=== PATIENT | female | born 1955 | race Caucasian/White ===

== ENCOUNTER 2022-11-01 21:29 | Emergency (ER) | payer MEDICARE, BC, SELFPAY ==
[2022-11-01 21:32] VITALS: BP 156/84; PULSE 89; RESP 16; TEMP 37.3; O2SAT 98; BMI 25.1
--- NOTE | 2022-11-01 22:00 | ED_ITS ---
HPI - General Adult General Date Seen: 11/01/22 Chief complaint: Extremity Pain/Injury, Upper Stated complaint: Cast on L arm causing pain Time Seen by Provider: 11/01/22 21:31 Source: patient Mode of arrival: ambulatory Limitations: no limitations History of Present Illness HPI narrative: Patient is a 67-year-old woman who had surgery on her left thumb at [facility] couple days ago. Says she has been having trouble with pain control since then, she called them yesterday to ask if she could get oxycodone instead of Tylenol No. 3 but they declined. Tonight, she says that the cast just feels tight, her fingers have been swollen and she feels that the cast is too tight so now they are getting tingly. She has not had any redness or fevers. Pain waxes and wanes, currently not that bad. Related Data Home Medications Medication Instructions Recorded Confirmed atenolol 50 mg tablet 50 mg PO QDAY 08/15/22 11/01/22 bupropion HCl 150 mg tablet,12 hr 150 mg PO Q12H 08/15/22 11/01/22 sustained-release (Wellbutrin SR) citalopram 20 mg tablet 20 mg PO QDAY 08/15/22 11/01/22 lorazepam 1 mg tablet 1 mg PO QDAY PRN 08/15/22 11/01/22 omeprazole 20 mg tablet,delayed 20 mg PO QDAY 08/15/22 11/01/22 release acetaminophen-codeine PO 11/01/22 gabapentin 300 mg capsule mg PO 11/01/22 hydroxyzine pamoate .ROUTE 11/01/22 ondansetron 4 mg disintegrating PO 11/01/22 tablet Previous Rx's Medication Instructions Recorded halobetasol propionate 0.05 % 1 applic topical QDAY #50 grams 09/17/22 topical ointment clobetasol 0.05 % topical ointment 1 applic topical .COMPLEX #60 grams 10/30/22 Allergies Allergy/AdvReac Type Severity Reaction Status Date / Time No Known Drug Allergies Allergy Verified 11/01/22 21:38 [facility] Medical History (Updated 11/01/22 @ 21:55 by Bela Macedo MD) Anxiety ?F41.9 - Anxiety disorder, unspecified (ICD-10) Chronic insomnia ?F51.04 - Psychophysiologic insomnia (ICD-10) Depression ?F32.A - Depression, unspecified (ICD-10) Essential hypertension ?I10 - Essential (primary) hypertension (ICD-10) History of diverticulitis (2008) ?Z87.19 - Personal history of other diseases of the digestive system (ICD-10) Osteopenia ?M85.80 - Other specified disorders of bone density and structure, unspecified site (ICD-10) Surgical History (Updated 11/01/22 @ 21:41 by Raheem Reynolds RN) History of appendectomy (1967) ?Z90.49 - Acquired absence of other specified parts of digestive tract (ICD- 10) History of arthroscopic knee surgery (2003) ?Z98.890 - Other specified postprocedural states (ICD-10) History of bladder repair surgery (1998) ?Z98.890 - Other specified postprocedural states (ICD-10) History of colon resection (12/19/09) ?Z90.49 - Acquired absence of other specified parts of digestive tract (ICD- 10) History of D&C (1977) ?Z98.890 - Other specified postprocedural states (ICD-10) History of hand surgery (10/27/14) ?Z98.890 - Other specified postprocedural states (ICD-10) History of open reduction and internal fixation (ORIF) procedure (06/17/20) ?Z98.890 - Other specified postprocedural states (ICD-10) History of total abdominal hysterectomy ?Z90.710 - Acquired absence of both cervix and uterus (ICD-10) History of total abdominal hysterectomy and bilateral salpingo-oophorectomy (1999) ?Z90.710 - Acquired absence of both cervix and uterus (ICD-10) ?Z90.722 - Acquired absence of ovaries, bilateral (ICD-10) ?Z90.79 - Acquired absence of other genital organ(s) (ICD-10) Family History (Updated 08/14/22 @ 12:03 by Tatum Jimenez) Father Coronary artery disease Social History Smoking Status: Never smoker Do you use any of these nicotine containing products: None Second hand tobacco smoke exposure: No How often do you have a drink containing alcohol: 4 or more times a week How many standard drinks containing alcohol do you have on a typical day: 1 or 2 AUDIT-C Alcohol total score: 4 Non-prescribed substance use: denies use service: No Exam Narrative: Exam Narrative: Vital signs reviewed In general, an alert, nontoxic woman. Extremities: The left forearm is in a sugar-tong cast. She does have some edema in her fingers, no significant erythema, no warmth. Capillary refill is brisk throughout the hand. Skin: Warm dry, otherwise well perfused. Const: Vital Signs, click to edit/add: Vital Signs - 24 hr 11/01/22 21:32 Temperature 99.2 F Pulse Rate [Pulse Oximeter] 89 Respiratory Rate 16 Blood Pressure [Ri t Upper Arm] 156/84 H Pulse Oximetry 98 Oxygen Delivery Me thod Room Air Documenting provider has reviewed patient's vital signs: yes Course Course Hospital Course: Overall the hand appears well perfused. I took the Ernst wrap down, I elected to leave the thumb spica portion intact and just cut the upper and lower parts of the cotton wrap to open the splint a bit on the forearm like clamshell. She felt that this relieved the symptoms in her hand. Arm looks normal, there is no erythema. For now I recommended that we just start with this and see how she feels. Discussed that if the pain is progressively getting worse I think someone needs to see it again, ideally at [facility]. Discussed with her that for earl I am trying to leave the thumb spica in place and she just had surgery and she is supposed to have the splint on for a week. For now just opening splint a bit seems to alleviated the symptoms that she was having. I do not have reason to suspect infection specifically at this time. Vital Signs Vital signs: Initial Vital Signs Temperature 99.2 F 11/01/22 21:32 Temperature Source Temporal Artery Scan 11/01/22 21:32 Pulse Rate 89 11/01/22 21:32 Respiratory Rate 16 11/01/22 21:32 Blood Pressure 156/84 H 11/01/22 21:32 Blood Pressure Mean 108 H 11/01/22 21:32 Blood Pressure Position Sitting 11/01/22 21:32 Pulse Oximetry 98 11/01/22 21:32 Oxygen Delivery Method Room Air 11/01/22 21:32 Vital Signs Temperature 99.2 F 11/01/22 21:32 Pulse Rate 89 11/01/22 21:32 Respiratory Rate 16 11/01/22 21:32 Blood Pressure 156/84 H 11/01/22 21:32 Pulse Oximetry 98 11/01/22 21:32 Oxygen Delivery Method Room Air 11/01/22 21:32 Temperature 99.2 F 11/01/22 21:32 Pulse Rate 89 11/01/22 21:32 Respiratory Rate 16 11/01/22 21:32 Blood Pressure 156/84 H 11/01/22 21:32 Pulse Oximetry 98 11/01/22 21:32 Oxygen Delivery Method Room Air 11/01/22 21:32 Discharge Plan Discharge Clinical Impression: Problem with fiberglass cast Patient Disposition: Home, Self-Care Condition: Improved Instructions: Cast Care (ED) Additional Instructions: If you are continuing to have problems or if pain is worsening, call [facility] tomorrow; someone should re-evaluate further. Continue to elevate as able. For severe pain, redness, fever or other acute changes, return to the ER. Prescriptions: No Action bupropion HCl [Wellbutrin SR] 150 mg tablet sustained-release 12 hr 150 mg PO Q12H citalopram 20 mg tablet 20 mg PO QDAY atenolol 50 mg tablet 50 mg PO QDAY omeprazole 20 mg tablet,delayed release (DR/EC) 20 mg PO QDAY lorazepam 1 mg tablet 1 mg PO QDAY PRN gabapentin 300 mg capsule PO ondansetron 4 mg tablet,disintegrating PO hydroxyzine pamoate [Vistaril] .ROUTE acetaminophen-codeine [Tylenol-Codeine #3] PO halobetasol propionate 0.05 % ointment 1 applic topical QDAY Qty: 50 0RF Rx Instructions: Apply to affected area nightly for 4 weeks, then every other night for 4 weeks, then twice weekly for 4 weeks. clobetasol 0.05 % ointment 1 applic topical .COMPLEX Qty: 60 1RF Rx Instructions: 1 applic topically; twice weekly Follow Up/Referrals: Angelo Acevedo MD [Primary Care Provider] - Stand Alone Forms: [facility] Info Instructions
== END 2022-11-01 22:12 | disposition home or self-care (01) ==
LOC: ED 22:06
PROVIDERS: Emergency Provider Emergency Medicine; PCP Family Medicine
DX: Z46.89 Encounter for fitting and adjustment of other specified devices (principal)
CPT/HCPCS: 99282; 99283

== ENCOUNTER 2023-06-15 11:50 | Outpatient (CLI) | payer MEDICARE, BC, SELFPAY | END 2023-06-15 11:51 | disposition home or self-care (01) | LOC: NFLDREF 06-18 03:25 | PROVIDERS: PCP Family Medicine; Referring Provider Family Medicine; Visit Provider Registered Nurse | DX: R30.0 Dysuria (principal); N39.0 Urinary tract infection, site not specified | CPT/HCPCS: 87086; 87186 ==

== ENCOUNTER 2023-11-06 06:55 | Day surgery (SDC) | payer MEDICARE, BC, SELFPAY ==
[2023-11-06] VITALS (19 sets, daily range): BP systolic 123–145; BP diastolic 63–89; PULSE 65–89; RESP 11–20; TEMP 36.3–36.8; O2SAT 93–100; BMI 26.4
--- OUTSIDE RECORDS SUMMARY | 2023-11-06 06:57 | XMS_ITS ---
Author Name Unknown Organization [facility] Address [address] [place] [address] Care Team Providers Care Geodetic Survey Director Name Role Phone Unavailable Unavailable Unavailable Surgery Details Not on file Complications Check Surgery Details section. Procedure Estimated Blood Loss Check Surgery Details section. Procedure Findings Check Surgery Details section. Procedure Specimens Taken Check Surgery Details section.
--- OUTSIDE RECORDS SUMMARY | 2023-11-06 06:57 | XMS_ITS | Referral Summary ---
Author Name Unknown Organization [facility] Address [address] [place] [address] Care Team Providers Care Position Classifier Name Role Phone Elsewhere, Pcp Primary Care Provider Unavailabl e Source Comments Patient records contain information from all sites at [facility]. For routine questions regarding patient records, call [phone] during business hours, M-F 8:00 AM - 5:00 PM Central Time. Record requests for emergency care only can be directed to [phone] at any time.[facility] Allergies No known active allergies Medications Medication Sig Dispensed Refills Start Date End Date Status atenoloL (TENORMIN) 50 mg tablet Take 1 tablet by mouth daily. 02/26/2015 Active buPROPion XL (WELLBUTRIN XL) 150 mg 24 hr tablet Take 2 tablets by mouth daily. 04/28/2015 Active citalopram (CeleXA) 20 mg tablet Take 1 tablet by mouth every morning. 02/26/2015 Active gabapentin (NEURONTIN) 300 mg capsule One oral am and midday, two at bedtime. 11/03/2021 Active LORazepam (ATIVAN) 1 mg tablet Take 1 tablet by mouth at bedtime as needed. 01/07/2022 Active omeprazole (PriLOSEC) [address] capsule Take 20 mg by mouth daily. 08/24/2021 Active vitamin A,C,A-aygxlc-hqvaxptw (OCUVITE W/LUTEIN) 300 mcg (1,000 Unit)-200 mg-60 Unit-2 mg tablet Take 2 tablets by mouth daily. Active UNABLE TO FIND 2 each at bedtime. seratame Active UNABLE TO FIND 8 each daily. Progon-b drops Active Social History Tobacco Use Types Packs/Day Years Used Date Smoking Tobacco: Never Smokeless Tobacco: Never Alcohol Use Standard Drinks/Week Comments Yes 7 (1 standard drink = 0.6 oz pur e alcohol) Humiliation, Afraid, Rape, and Kick questionnair e Answer Date Recorded Within the last year, have y ou been afraid of your partner or ex-partner? No 01/18/2022 Within the last year, have y ou been humiliated or emotionally abused in other ways by your partner or ex-partner? No Within the last year, have y ou been kicked, hit, slapped, or otherwise physically hurt by your partner or ex-partner? No 01/18/2022 Within the last year, have y ou been raped or forced to have any kind of sexual activity by your partner or ex-partner? No 01/18/2022 Social Connection and Isolat ion Panel [NHANES] Answer Date Recorded In a typical week, how many times do you talk on the phone with family, friends, or neighbors? More than three times a week 01/18/2022 How often do you get togethe r with friends or relatives? Patient declined 01/18/2022 How often do you attend [facility] or roman catholic services? Never 01/18/2022 Do you belong to any clubs o r organizations such as sikh groups, unions, fraternal or athletic groups, or school groups? No 01/18/2022 How often do you attend meet ings of the clubs or organizations you belong to? Patient declined 01/18/2022 Are you , , di vorced, , never , or living with a partner? 01/18/2022 AUDIT-C Answer Date Recorded Q1: How often do you have a drink containing alcohol? 4 or more times a week 01/18/2022 Q2: How many drinks containi ng alcohol do you have on a typical day when you are drinking? 1 or 2 2 Q3: How often do you have si x or more drinks on one occasion? Never 01/18/2022 Overall Financial Resource Strain (CARDIA) Answe r Date Recorded How hard is it for you to pa y for the very basics like food, housing, medical care, and heating? Not hard at all 01/18/2022 [facility]at ional Health - Occupational Stress Questionnaire Answer Date Recorded Do you feel stress - tense, restless, nervous, or anxious, or unable to sleep at night because your mind is troubled all the time - these days? Only a little 01/18/2022 Exercise Vital Sign Answer Date Recorde d On average, how many days pe r week do you engage in moderate to strenuous exercise (like a brisk walk)? 3 days 01/18/2022 On average, how many minutes do you engage in exercise at this level? 30 min 01/18/2022 Hunger Vital Sign Answer Date Recorded Within the past 12 months, y ou worried that your food would run out before you got the money to buy more. Never true 01/19/20 Within the past 12 months, t he food you bought just didn't last and you didn't have money to get more. Never true 01/18/2022 PRAPARE - Transportation Answer Date Re corded In the past 12 months, has l ack of transportation kept you from medical appointments or from getting medications? No 01/2022 In the past 12 months, has l ack of transportation kept you from meetings, work, or from getting things needed for daily living? No 01/18/2022 Housing Stability Vital Sign Answer Abran e Recorded In the last 12 months, was t here a time when you were not able to pay the mortgage or rent on time? No 01/18/2022 In the last 12 months, how many places have you lived? 1 01/18/2022 In the last 12 months, was t here a time when you did not have a steady place to sleep or slept in a fci (including now)? No 01/18/2022 Nutrition Answer Date Recorded Nutrition: EVOO Fat Source Yes 01/18 On average, how many serving s of fruits and vegetables do you eat per day (serving size is equal to 1 cup or approximately the size of a tennis ball)? 0-1 01/18/2022 Dental Answer Date Recorded Dental: Regular Dentist Yes 01/19/20 Employment Answer Date Recorded Employment status Retired 01/18/2022 Education Answer Date Recorded What is the highest level of school you have completed or the highest degree you have received? Bachelor's degree (e.g., BA, AB, BS) 01/18/2022 Sex and Gender Information Value Date Recorded Sex Assigned at Female 01/19/2022 12:37 AM CDT Gender Identity Female 01/19/2022 12:37 AM CDT Sexual Orientation Straight 01/19/2022 12 :37 AM CDT Last Filed Vital Signs Vital Sign Reading Time Taken Comments Blood Pressure - - Pulse - - Temperature 36.3 ??C (97.3 ??F) 01/23/2022 1:01 PM CD T Respiratory Rate - - Oxygen Saturation - - Inhaled Oxygen Concentration - - Weight 79.8 kg (175 lb 13.1 oz) 01/23/2022 1:01 PM CDT Height 177 cm (5' 9.69) 01/23/2022 1:01 PM CDT Body Mass Index 25.46 01/23/2022 1:01 PM CDT Plan of Treatment Not on file Medical Devices Implanted Type Area Grain Elevator Superintendent Device Identifier Shelf Expiration Date Model / Serial / Lot Hardware E.G. Pins/Screws/Ro ds-06/17/2020 Implanted:10/2019 (Quantity not on file) Hardware e.g. pins/screws/r ods Wrist Hardware E.G. Pins/Screws/Ro ds-12/07/2020 Implanted:11/13 (Quantity not on file) Hardware e.g. pins/screws/r ods Foot Description:Right foot Procedures Procedure Name Priority Date/Time Associated Diagnosis Comments EXTI BASIC METABOLIC PANEL, S/P Routine 11/03/2021 4:07 PM CDT from Last 3 Months or Most Recently Relevant to Health Maintenance Care Teams Position Classifier Relationship Specialty Start Date End Date Elsewhere, Pcp PCP - General Internal Medicine 01/23/22
--- OUTSIDE RECORDS SUMMARY | 2023-11-06 06:57 | XMS_ITS | Clinical Summary ---
Author Name Unknown Organization [facility] Address [address] [place] [address] Care Team Providers Care Mess Attendant Name Role Phone Elsewhere, Pcp Primary Care Provider Unavailabl e Source Comments Patient records contain information from all sites at [facility]. For routine questions regarding patient records, call [phone] during business hours, M-F 8:00 AM - 5:00 PM Central Time. Record requests for emergency care only can be directed to [phone] at any time.[facility] Allergies No known active allergies Medications Medication [...] mg by mouth daily. 08/24/2021 Active vitamin A,C,V-pbelcz-tkypmvnh (OCUVITE W/LUTEIN) 300 mcg (1,000 Unit)-200 mg-60 Unit-2 mg tablet Take 2 tablets by mouth daily. Active UNABLE TO FIND 2 each at bedtime. seratame Active UNABLE TO FIND 8 each daily. Progon-b drops Active Family History Medical History Relation Name Comments Drug abuse Brother Facundo Bhatt Anxiety disorder Daughter KjirstenAnderedgar Depression Daughter KjirstenAnderson Coronary artery disease Father Song Bhatt Hypertension Father Song Bhatt Parkinson disease Father Song Bhatt Prostate cancer Father Song Bhatt Hyperlipidemia Mother Lizzy Bhatt Osteoporosis Mother Lizzy Bhatt Melanoma Son 1 Jens Chaudhary Drug abuse Son 2 Tin Chaudhary Suicide Attempts Son 2 Tin Chaudhary Anxiety disorder Son 3 Abad Chaudhary Depression Son 3 Abad Chaudhary Drug abuse Son 3 Abad Chaudhary Psychiatric Son 3 Abad Chaudhary Relation Name Status Comments Brother Facundo Bhatt Daughter Michael Father Song Bhatt Mother Lizzy Bhatt Son 1 Jens Chaudhary Son 2 Tin Chaudhary Son 3 Abad Chaudhary Social History Tobacco Use Types Packs/Day Years [...] declined 01/18/2022 How often do you attend chur ch or episcopalian services? Never 01/18/2022 Do you belong to any clubs o r organizations such as druze groups, unions, fraternal or athletic groups, or [...] and heating? Not hard at all 01/18/2022 [facility] - Occupational Stress [...] money to buy more. Never true 01/19/20 22 Within the past 12 months, t he [...] place to sleep or slept in a alf (including now)? No 01/18/2022 Nutrition Answer Date [...] 01/23/2022 1:01 PM CDT Plan of Treatment Health Maintenance Due Date Last Done Comments Bone Density Scan (Osteoporo sis Screen) 1953 CT Colonography 1955 Cologuard 1955 Colonoscopy 1955 Colorectal Cancer Screening 1955 FIT 1953 Hepatitis C Screening 1955 Mammogram 1955 DTaP,Tdap,and Td Vaccines (2 - Td or Tdap) 12/25/2022 12/25/2012, 10/31/1999, 10/31/1999 Depression Screening (Annual PHQ-2) 07/15/2023 Fall Risk Screen (Annual) 07/15/2023 COVID-19 Vaccine (8 2022-2 4 season) 2023 04/10/2023, 11/13/2022, 03/27/2022, Additional history exists Fasting Glucose for Diabetes Screening 11/03/2024 11/03/2021, 06/05/2021, 08/17/2020, Additional history exists Zoster Vaccines Completed 09/01/2018, 02/2018, 12/25/2012 Pneumococcal vaccine (65+ years) Completed 06/23/20, 04/17/2018 Influenza Vaccine Completed 04/10/2023, , 05/02/2021, Additional history exists Medical Devices Implanted Type Area Lung Puller Device Identifier Shelf Expiration Date Model / [...] Recently Relevant to Health Maintenance Care Teams Mess Attendant Relationship Specialty Start Date End Date Elsewhere, Pcp PCP - General Internal Medicine 01/23/22
--- OUTSIDE RECORDS SUMMARY | 2023-11-06 06:58 | XMS_ITS | Clinical Summary ---
Author Name Unknown [facility] Address [address], [place] [address] Care Team Providers Care Line Lead Name Role Phone Angelo Acevedo MD Primary Care Provider [phone] Source Comments You are receiving this document as you are listed as the primary care provider,follow-up provider, or the patient has been referred to you for consultation.This is in compliance with the Medicare and[facility] EHR Incentive Program,which states Providers who transition their patient to another setting of careor provider of care or refers their patient to another provider of care shouldprovide summary care record for each transition of care or referral. [facility] Allergies No known active allergies Medications Medication Sig Dispensed Refills Start Date End Date Status ATENolol (AKA TENORMIN) 50 MG tabletIndications:SAGE URIAS STEFAN M [facility] Apr 28, 2015 2:33 PM Received from: External Pharmacy Indications: PN: STEFAN DUBON [facility] Apr 28, 2015 2:33 PM Received from: External Pharmacy 02/26/2015 Active citalopram (AKA CELEXA) 20 MG tabletIndications:SAGE URIASMYRTLESTEFAN M [facility] Apr 28, 2015 2:33 PM Received from: External Pharmacy Indications: PN: STEFAN DUBON [facility] Apr 28, 2015 2:33 PM Received from: External Pharmacy 02/26/2015 Active buPROPion (WELLBUTRINXL) 150 MG 24 hour release tabletIndications:SAGE URIAS STEFAN Mccall [facility] Apr 28, 2015 2:33 PM Received from: External Pharmacy 1 Tablet (150 mg). Indications: STEFAN DUBON [facility] Apr 28, 2015 2:33 PM Received from: External Pharmacy 04/28/2015 Active omeprazole (PRILOSEC) 20 MG capsule Take 1 Capsule (20 mg) by mouth. 11/13/2022 Active Multiple Vitamins-Minerals (I-MADISON) Take 2 Tablets by mouth daily. Active LORazepam (ATIVAN) 1 MG tablet TAKE 1 TABLET BY MOUTH EVERY DAY AT BEDTIME NEEDED FOR ANXIETY OR NEEDED FOR SLEEP 11/13/2022 Active halobetasol (ULTRAVATE) 0.05 % ointment PLEASE SEE ATTACHED FOR DETAILED DIRECTIONS 09/17/2022 Active clobetasol (TEMOVATE) 0.05 % ointment PLEASE SEE ATTACHED FOR DETAILED DIRECTIONS 09/28/2022 Active alendronate (FOSAMAX) 70 MG tablet Take 1 Tablet (70 mg) by mouth once every week. 11/13/2022 Active Active Problems Problem Noted Date Diagnosed Date Post-operative pain 11/08/2022 Palmar fasciitis 07/27/2021 Primary osteoarthritis of fi rst carpometacarpal joint of left hand 07/27/2021 Encounters Date Type Department Care Team Description 08/29/2023 1:25 PM ASSISTANT PROFESSOR OF ART Ancillary Procedure [facility] [address] [place] [address] Jens Loja MD Postop check 08/29/2023 1:15 PM ASSISTANT PROFESSOR OF ART Office Visit [facility] [address] [place] [id number] Jens Loja MD Postop check (Primary Dx); Weakness from Last 3 Months Social History Tobacco Use Types Packs/Day Years Used Date Smoking Tobacco: Never Alcohol Use Standard Drinks/Week Comments Yes 0 (1 standard drink = 0.6 oz pur e alcohol) one glass wine daily Sex and Gender Information Value Date Recorded Sex Assigned at Not on file Gender Identity Not on file Sexual Orientation Not on file Last Filed Vital Signs Vital Sign Reading Time Taken Comments Blood Pressure 121/68 10/30/2022 2:10 PM CDT Pulse 72 10/30/2022 2:10 PM CDT Temperature 36.9 ??C (98.4 ??F) 10/30/2022 1:29 PM CD T Respiratory Rate 14 10/30/2022 2:10 PM CDT Oxygen Saturation 96% 10/30/2022 2:10 PM CDT Inhaled Oxygen Concentration - - Weight 81.6 kg (180 lb) 10/30/2022 10:26 AM CDT Height 175.3 cm (5' 9) 10/30/2022 10:26 AM CDT Body Mass Index 26.58 10/30/2022 10:26 AM CDT Plan of Treatment Health Maintenance Due Date Last Done Comments Colon Cancer Screening Plan Due 1955 Hep C Screening (Preventive Services) 1955 Medicare Annual Wellness Visit 1955 Cholesterol 1998 Dexa 2018 DTaP/Tdap/Td (2 - Tdap) 12/25/2022 12/26/19 13, 01/12/2006, 10/31/1999 Mammogram 12/13/2023 12/12/2022, 09/18/2021 Zoster/Shingles Completed 09/01/2018, 02/2018, 12/25/2012 Pneumococcal 65+ Yrs Completed 06/23/2019, 04/17/20 18 COVID-19 Vaccine Completed 04/10/2023, 08/2022, 03/27/2022, Additional history exists Influenza Completed 04/10/2023, 03/15, 05/02/2021, Additional history exists HepA Aged Out No longer eligi ble based on patient's age to complete this topic HepB Aged Out No longer eligi ble based on patient's age to complete this topic Hib Aged Out No longer eligi ble based on patient's age to complete this topic IPV (Polio) Aged Out No longer eligi ble based on patient's age to complete this topic MCV4 Aged Out No longer eligi ble based on patient's age to complete this topic Medical Devices Implanted Type Area Qualified Craft Worker Electrician Device Identifier Shelf Expiration Date Model / Serial / Lot K-Wire Gd .062 - [id number] Implanted:Qty: 1 on 10/30/2022 by Jens Loja MD at [facility] Left: Thumb [employer] 08/23/2026 1600-023 / 0 / [id number] [employer] [place] W/Force Fiber No 2 - [id number] Implanted:Qty: 1 on 10/30/2022 by Jens Loja MD at [facility] Left: Thumb [employer] 03/25/2024 [id number] Procedures Procedure Name Priority Date/Time Associated Diagnosis Comments XR HAND LT 3+ VIEWS Routine 08/29/2023 1 :31 PM ASSISTANT PROFESSOR OF ART Postop check MM MAMMOGRAM SCREENING BILAT W 3D DEMI W CAD Routine 12/12/2022 1:44 PM CDT from Last 3 Months or Most Recently Relevant to Health Maintenance Results * XR Hand Lt 3+ Views (08/29/2023 1:31 PM ASSISTANT PROFESSOR OF ART) Anatomical Region Laterality Modality Upper Extremity, Hand Digital Ra diography Narrative 09/10/2023 12:17 PM ASSISTANT PROFESSOR OF ART X-ray of the left hand, including AP, lateral, and oblique projections, shows well-preserved bony architecture of the left wrist and hand as well as fingers. The obvious CMC joint arthroplasty is noted. Otherwise, joint spaces are well preserved, and congruent. There is no other obvious pathology within the bony structures themselves. Jens Loja MD RAD GD from Last 3 Months or Most Recently Relevant to Health Maintenance Advance Directives * Full Code (Latest Code Status on File) Date Activated Date Inactivated Comments 05/15/2016 9:30 AM 05/15/2016 1:44 PM Full code in effect for 30 days Care Teams Line Lead Relationship Specialty Start Date End Date Angelo Acevedo MD [address] [place] [address] PCP - General Family Practice 06/09/21
--- OUTSIDE RECORDS SUMMARY | 2023-11-06 06:58 | XMS_ITS | Encounter Summary ---
Author Name Unknown Organization [facility] Address [address], [place] [address] Care Team Providers Care Rubber Stamp Die Inspector Name Role Phone Angelo Acevedo MD Primary Care Provider [phone] Reason for Visit * Procedure/Equipment (Routine) - Incomplete Specialty Diagnoses / Procedures Referred By Contac t Referred To Contact Diagnoses Postop check Procedures XR Hand Lt 3+ Views Jnes Loja MD [address] [place] [id number] Referral ID Status Reason Start Date Expiration Date V isits Requested Visits Authorized [id number] Incomplete 08/29/2023 11/27/2024 1 1 Encounter Details Date Type Department Care Team (Late st Contact Info) Description 08/29/2023 1:25 PM TRUCK MANAGER Ancillary Procedure [facility] [address] [place] [address] Jens Loja MD [address] [place] [id number] Postop check Social History Tobacco Use Types Packs/Day Years Used Date Smoking Tobacco: Never Alcohol Use Standard Drinks/Week Comments Yes 0 (1 standard drink = 0.6 oz pur e alcohol) one glass wine daily Sex and Gender Information Value Date Recorded Sex Assigned at Not on file Gender Identity Not on file Sexual Orientation Not on file documented as of this encounter Plan of Treatment Not on file documented as of this encounter Procedures Procedure Name Priority Date/Time Associated Diagnosis Comments XR HAND LT 3+ VIEWS Routine 08/29/2023 1 :31 PM TRUCK MANAGER Postop check documented in this encounter Results * XR Hand Lt 3+ Views (08/29/2023 1:31 PM TRUCK MANAGER) Anatomical Region Laterality Modality Upper Extremity, Hand Digital Ra diography Narrative 09/10/2023 12:17 PM TRUCK MANAGER X-ray of the left hand, including AP, lateral, and oblique projections, shows well-preserved bony architecture of the left wrist and hand as well as fingers. The obvious CMC joint arthroplasty is noted. Otherwise, joint spaces are well preserved, and congruent. There is no other obvious pathology within the bony structures themselves. Jens Loja MD RAD GD documented in this encounter Visit Diagnoses Diagnosis Postop check Follow-up examination, following unspecified surgery documented in this encounter Care Teams Rubber Stamp Die Inspector Relationship Specialty Start Date End Date Angelo Acevedo MD [address] [place] [address] PCP - General Family Practice 06/09/21 documented as of this encounter
--- OUTSIDE RECORDS SUMMARY | 2023-11-06 06:58 | XMS_ITS | Encounter Summary ---
Author Name Unknown Organization [facility] Address [address] [address] Care Team Providers Care Lapel Stitcher Name Role Phone Angelo Acevedo MD Primary Care Provider [phone]- [phone] Reason for Referral * Procedure/Equipment (Routine) - New Request Specialty Diagnoses / Procedures Referred By Contac t Referred [place] [address] [place] [address] [place] [id number] Referral ID Status Reason Start Date Expiration Date V isits Requested Visits Authorized [id number] New Request 08/29/2023 11/27/2024 1 1 Scheduling Instructions Your clinician has recommended an appointment with [facility]. You can quickly make your appointment online at [employer]/schedule. You can also call [phone] for help scheduling your appointment. We suggest you call your health insurance company about your coverage and benefits for this appointment. Question Answer Appointment Urgency? Non-Urgent Reason For Visit Other (Please Specify) - arm weakness Number of Limbs Upper Limb Upper Limbs Left ATION INSTRUCTOR * Procedure/Equipment (Routine) - Incomplete Specialty Diagnoses / Procedures Referred By Contac t Referred To Contact Diagnoses Postop check Procedures XR Hand Lt 3+ Views Jens Loja MD [address] [place] [id number] Referral ID Status Reason Start Date Expiration Date V isits Requested Visits Authorized [id number] Incomplete 08/29/2023 11/27/2024 1 1 ATION INSTRUCTOR Reason for Visit * Reason Comments Post-Op Check Encounter Details Date Type Department Care Team (Late st Contact Info) Description 08/29/2023 1:15 PM EDUCATION INSTRUCTOR Office Visit [facility] [address] [place] [address] Jens Loja MD [address] [place] [address] [place] [id number] Postop check (Primary Dx); Weakness Social History Tobacco Use Types Packs/Day Years Used Date Smoking Tobacco: Never Alcohol Use Standard Drinks/Week Comments Yes 0 (1 standard drink = 0.6 oz pur e alcohol) one glass wine daily Sex and Gender Information Value Date Recorded Sex Assigned at Not on file Gender Identity Not on file Sexual Orientation Not on file documented as of this encounter Patient Instructions * Patient Instructions* Annamarie Gilbert, ATC - 08/29/2023 1:15 PM EDUCATION INSTRUCTOR Thank you for Choosing [facility] for your health care visit today. Dr. Jens Loja MD Surgery of the Upper Extremity To schedule an EMG at [facility], please call [phone] or stop at the restaurant front manager. To schedule an EMG at [facility], please call [phone]. Medication Requests: Prescriptions are not filled on weekends or on weekdays after 3:00 PM. For all medication refills: Request a refill using [employer] or contact your pharmacy. What is Know Your Cost? Know Your Cost is a service for patients and patient/members to call and receive personalized cost information and estimates across our care group. The phone number is (COST) Saturday - Saturday 8 AM to 5 PM Advanced Imaging Scheduling: To schedule an MRI, Ultrasound, or Image guided injection at [facility] please call [phone]. To schedule an MRI or CT at a [facility] location please call [phone]. [employer] [address] [place] [address] (Phone) Email: [email or web address] Release of Information: Radiology/Imaging [address] [place] [address] (Phone) Health Information Management [address] [place] [address] (Phone) [email or web address] ATION INSTRUCTOR documented in this encounter Progress Notes * Jens Loja MD - 08/29/2023 1:15 PM CST 68 y/o F almost 1 yy s/p lf th CMC a'plasty with ongoing diffuse weakness left hand Also diffuse pain Etiology??? This office note has been dictated. Jens Loja MD ATION INSTRUCTOR * Jens Loja MD - 08/29/2023 12:00 AM CST NAME: DOREEN SANDERS CSN: [id number] CLINIC NOTE DATE OF SERVICE: 08/29/2023 : 1955 The patient reports back for recheck of her left hand. 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 She offers no complaints specifically related to the CMC arthroplasty. Other than that, she feels there is a significant weakness in her thumb. She again reports an inability to push the button on her screen door, car door, etc., all because of this weakness. However, shegoes on to define more diffuse weakness throughout the entire hand, being unable to grasp and hold objects. She is unsure as to exactly when this started, but tends to relate it to the time followingher surgery. She reports no numbness nor tingling. She has no nighttime paresthesias. In addition, she describes diffuse pain across both the volar and dorsal aspects of the hand, pointing towards the region of the CMC joints of the lesser digits on the dorsal aspect of her hand, but more proximally in the region of the carpal tunnel and wrist areas of the volar aspect of the hand. It notes that she is able to flex and extend her fingers without difficulty, but thinks that she just does not have the strength that she previously had. The patient reports no other significant systemic symptoms. She states that she does have neuropathy in both of her lower extremities, though these appear to be isolated problems and not suggestiveof a systemic neuropathy. She reports no ongoing problems with her right upper extremity at this time. Exam today reveals a pleasant and well-appearing woman. She does not appear to be chronically ill or otherwise severely affected medically. Inspection of her hands shows no obvious atrophy of the ulnar or median intrinsic musculature. She has the satisfactory resting posture of her hand. This includes her thumb. -She is able to make a good fist. In addition, she is able to oppose the thumb to the tips of her lesser digits across the left hand. -There are no significant mechanical findings about the CMC joint, and specifically no catching, locking, clunking, grinding, etc. -Gross grasp is approximately comparable to the opposite side on a clinical basis. Similarly, pinching strength is approximately equivalent to the opposite side on a clinical basis. -Exam is otherwise unremarkable. X-ray today #[id number], x-ray of the left hand, including AP, lateral, and oblique projections, shows well-preserved bony architecture of the left wrist and hand as well as fingers. The obvious CMC joint arthroplasty is noted. Otherwise, joint spaces are well preserved, and congruent. There is no other obvious pathology within the bony structures themselves. The patient presents with ongoing hand weakness and general dysfunction of an unclear etiology. A lengthy discussion was held with the patient regarding her current symptoms, and she was quite honestly advised that there does not appear to be anything that is easily recognized in terms of an etiologic factor for producing her weakness. It is possible that she has some type of radiculopathy ormyelopathy that is proximally mediated. There does not appear to be any type of localized nerve compression syndrome elsewhere. Nonetheless, she was advised that the greatest degree of information would probably be able to be gained by obtaining an EMG to determine what if any nerve or muscle problems she might have that would explain her weakness. Failing of this, she has been advised that I would have very little to offer in terms of being ableto come up with something in the way of a workable diagnosis that would allow for appropriate treatment. She will be scheduled for the EMG, contacted once the results of this are known. JENS LOJA MD TFV/AQS /[id number] ATION INSTRUCTOR documented in this encounter Plan of Treatment Scheduled Referrals Name Type Priority Associated Diagnoses Orde r Schedule REHAB--EMG ELECTRICAL NERVE CONDUCTION STUDY (AMB) Referral Routine Weakness Ordered: 08/29/2023 documented as of this encounter Results * XR Hand Lt 3+ Views (08/29/2023 1:31 PM EDUCATION INSTRUCTOR) Anatomical Region Laterality Modality Upper Extremity, Hand Digital Ra diography Narrative 09/10/2023 12:17 PM EDUCATION INSTRUCTOR X-ray of the left hand, including AP, [...] in this encounter Visit Diagnoses Diagnosis Postop check- Primary Follow-up examination, following unspecified surgery Weakness Other malaise and fatigue Postop check Follow-up examination, following unspecified surgery documented in this encounter Care Teams Lapel Stitcher Relationship Specialty Start Date End Date Angelo Acevedo MD [address] [place] [address] PCP - General Family Practice 06/09/21 documented as of this encounter
--- OUTSIDE RECORDS SUMMARY | 2023-11-06 06:58 | XMS_ITS | Clinical Summary ---
Author Name Unknown Organization [employer] [facility] [employer] Address [place], [place] [address] Care Team Providers Care International Controller Name Role Phone Angelo Acevedo MD Primary Care Provider Allergies No known active allergies Medications Medication Sig Dispensed Refills Start Date End Date Status atenoloL (TENORMIN) 50 mg tabletIndication s:Hypertension Take 1 Tablet (50 mg) by mouth once daily. 90 Tablet 3 3 Active citalopram (CELEXA) 20 mg tabletIndication s:Anxiety state Take 1 Tablet (20 mg) by mouth every morning. 90 Tablet 3 3 Active omeprazole (PRILOSEC) 20 mg Delayed-Release capsuleIndicatio ns:Chronic GERD Take 1 Capsule (20 mg) by mouth once daily before a meal. 90 Capsule 3 3 Active alendronate (FOSAMAX) 70 mg tabletIndication s:Osteoporosis, unspecified osteoporosis type, unspecified pathological fracture presence Take 1 Tablet (70 mg) by mouth once a week in the morning. Take on empty stomach with full glass of water. Do not lie down for 1 hr. 12 Tablet 3 3 Active gabapentin (NEURONTIN) 300 mg capsuleIndicatio ns:Peripheral sensory neuropathy One oral am and midday, three at bedtime. Increase at bedtime dose to 4 capsules if needed. 540 Capsule 3 3 Active buPROPion (WELLBUTRIN XL) 150 mg Extended-Release tabletIndication s:Anxiety state TAKE 2 TABLETS (300 MG) BY MOUTH ONCE DAILY 180 Tablet 4 Active LORazepam (ATIVAN) 1 mg tabletIndication s:Anxiety TAKE 1 TABLET BY MOUTH EVERYDAY AT BEDTIME NEEDED FOR ANXIETY OR NEEDED FOR SLEEP. 20 Tablet 4 Active polyethylene glycol-electroly te (GOLYTELY) 236-22.74-6.74 -5.86 gram suspensionIndica tions:Colon cancer screening Drink 2 liters (1/2 of prep) the day before colonoscopy and drink 2 liters (other 1/2 of prep) 6 hours before colonoscopy appointment. 4000 mL 3 11/04/19 24 Discontinued(*Me d complete/Regimen complete/Level of care change) buPROPion (WELLBUTRIN XL) 150 mg Extended-Release tabletIndication s:Anxiety state Take 2 Tablets (300 mg) by mouth once daily. 180 Tablet 4 10/13/19 24 Discontinued LORazepam (ATIVAN) 1 mg tabletIndication s:Anxiety TAKE 1 TABLET BY MOUTH EVERYDAY AT BEDTIME NEEDED FOR ANXIETY OR NEEDED FOR SLEEP. 20 Tablet 4 10/25/19 24 Discontinued Hospital, Clinic, or Other Facility Administered Medication Ordered Dose Route Frequency Start Date End Date Status fentaNYL (PF) (SUBLIMAZE) 50 mcg/mL injection 100 mcgIndications:Screening for colon cancer 100 mcg IV ONE TIME 10/30/2023 10/30/2023 Ended midazolam (VERSED) injection 2 mgIndications:Screening for colon cancer 2 mg IV ONE TIME 10/30/2023 10/30/2023 Ended Active Problems Problem Noted Date Diagnosed Date Colon polyp 10/31/2023 Overview: Colonoscopy 10/2023 TA, repeat in 7 years Other social stressor 08/15/2022 Anxiety and depression 11/03/2021 Sensory loss; Rt lower leg a nd foot since nerve block for foot surgery 12/2020. 11/03/2021 Osteoporosis 10/13/2021 Overview: Rec'd Alendronate. Contracture of hand joint, right 06/05/2021 Peripheral sensory neuropathy, bilat foot parest hesias 08/17/2020 Allergy 11/16/2016 Essential hypertension 03/04/2014 Mixed hyperlipidemia 03/04/2014 Diverticulosis of colon (without mention of hemo rrhage) 12/23/2012 Overview: Colonoscopy 12/2012 normal anastomosis at 15 cm, repeat in 10 years Resolved Problems Problem Noted Date Diagnosed Date Resolved Date Depression, recurrent 11/13/20222023 Osteopenia 04/14/2019 10/16/2023 Overview: FRAX scorse > 20 and 3% Anxiety state, unspecified 03/11/2009 0 11/03/2021 Symptomatic menopausal or fe male climacteric states 11/11/2007 11/16/2016 Dysthymic disorder 11/11/2007 Ingrowing nail 08/05/2007 11/16/2016 Encounters Date Type Department Care Team Description 11/04/2023 2:55 PM CDT Preop Visit [address] [address] Angelo Acevedo MD Preoperative Exam (DOS: 11/06/2023, right foot surgery, Dr. Grossman, [facility]) 11/04/2023 Travel 11/01/2023 Travel 10/30/2023 9:30 AM CDT Office Visit [address] [address] Nikita Mobley MD Procedure (Colonoscopy/) 10/30/2023 Travel 10/25/[address] [address] Angelo Acevedo MD Refill Request (Lorazepam) 10/23/[address] [address] Nikita Mobley MD Appointment Reminder (Colonoscopy 10/30/23) 10/16/2023 12:45 PM CDT Ancillary Procedure [address] [address] 10/16/2023 11:45 AM CDT Office Visit [address] [address] Angelo Acevedo MD Cough (Dry cough, Started a couple years ago/Sneezing and nasal drainage, started about 3 weeks ago) 10/16/2023 Telephone [facility] [address] [place] [address] Nikita Mobley MD Screening 10/16/2023 Travel 10/12/2023 Refill [facility] [address] [place] [address] Angelo Acevedo MD Refill Request (Bupropion) 09/17/2023 Refill [facility] [address] [place] [address] Angelo Acevedo MD Refill Request (Lorazepam) 08/18/2023 Refill [facility] [address] [place] [address] Angelo Acevedo MD Refill Request (Lorazepam) 08/14/2023 2:50 PM TAPE KELLER OPERATOR Office Visit [facility] [address] [place] [address] Francisca Luis MD UTI (Went to in [place] was put on Cipro. Had it in the past and had an issue with it, took one pill and then decided it was not for her. Did take AZO a couple of days. Some of the symptoms went away now just has a bad headache and her abdominal area hurts and badly) 08/14/2023 Travel 08/10/2023 3:15 PM TAPE KELLER OPERATOR Office Visit [facility] [address] [place] [address] Rosario Lopez, KIM Urinary Problem (burning, frequency and urgency. had a uti 2 months ago) 08/10/2023 Travel from Last 3 Months Immunizations Name Administration Dates Next Due AMB Influenza, IIV3 (Age >=3 years)(Flu Clinic Only) 06/04/2011 COVID-19 vaccine (Pfizer-Bio NTech 30mcg/0.3mL) 12YO+ BIVALENT PF, MDV 11/13/2022 COVID-19 vaccine (Pfizer-Bio NTech 30mcg/0.3mL) 12YO+ PRIYANKA-SUCROSE PF, MDV 10/25/2021 COVID-19 vaccine (Pfizer-Bio NTech 30mcg/0.3mL) PF, MDV 10/06/2020,09/15/2020 Hepatitis B (Adult) 06/28/1992,01/26/1992,1991 Influenza, High-dose Quadriv alent Inactivated 04/10/2023,05/02/2021,04/21/2020 Influenza, IIV3 (Age >=3 years) 04/15/2013,06/25,04/08/2009 Influenza, IIV4 05/08/2016,05/04/2015,03/30/2014 Influenza, IIV4 (=>6mos) MDV 04/11/2017 Influenza, Inactivated AIIV4 (Age 65+ Years) Preserv Free 03/27/2022 Influenza, Inactivated IIV3 (Age 65+ Years) Preserv Free 06/23/2019,04/17/2018 Pneumococcal Poly,23-Valent (Pneumovax) 06/23/20 19 Pneumococcal conj 13-Valent (Prevnar 13) 018 RSV, Bivalent Vaccine Recons tituted (Abrysvo 120MCG/0.5mL) 04/18/2023 Td (Age >=7 Years) 01/12/2006,10/31/1999 Tdap 10/16/2023,12/25/2012 Zoster (Shingrix-RZV, recombinant) 09/01/2018, Zoster (Zostavax-ZVL, live) 12/25/2012 Family History Medical History Relation Name Comments Heart attack Father Cancer-breast Maternal Aunt age 83 Good Health Mother at 93. Osteoporosis Mother Osteopenia Sister Anesthesia Problem No Family History Cancer-colon No Family History Cancer-ovarian No Family History Diabetes No Family History Heart Disease No Family History Relation Name Status Comments Father (Age 82) lewy body dementia Maternal Aunt Mother Alive Sister Social History Tobacco Use Types Packs/Day Years Used Date Smoking Tobacco: Never Smokeless Tobacco: Never Tobacco Cessation:Counseling Given: No Alcohol Use Standard Drinks/Week Comments Yes 7 (1 standard drink = 0.6 oz pur e alcohol) 1 wine per day PHQ-2 Answer Date Recorded PHQ-2 TOTAL SCORE 0 11/13/2022 Social Connections Answer Date Recorded Frequency of Communication with Friends and Fami ly 0 08/14/2023 Financial Resource Strain Answer Date R ecorded Difficulty of Paying Living Expenses 3 08/14/2023 Difficulty of Paying Living Expenses Not on file 08/14/2023 Food Insecurity Answer Date Recorded Worried About Running Out of Food in the Last Ye ar 1 08/14/2023 Transportation Needs Answer Date Record ed Lack of Transportation (Medical) 1 08/14/2023 Housing Stability Answer Date Recorded Unable to Pay for Housing in the Last Year 1 08/14/2023 Sex and Gender Information Value Date Recorded Sex Assigned at Not on file Gender Identity Not on file Sexual Orientation Not on file Obstetrics History Para Term AB IAB SAB Ectopic Multiple Livin g Live Births 5 4 4 1 1 4 Date Outcome GA Total Labor Labor/2nd/3rd Weight Sex Delivery Anes PTL Jo A1 A5 Name Cl in Term Term Term Term SAB Last Filed Vital Signs Vital Sign Reading Time Taken Comments Blood Pressure 123/74 11/04/2023 3:00 PM CDT Pulse 60 11/04/2023 3:00 PM CDT Temperature 36.7 ??C (98 ??F) 08/14/2023 2:58 PM TAPE KELLER OPERATOR Respiratory Rate 16 10/30/2023 10:3 2 AM CDT Oxygen Saturation 99% 11/04/2023 3:00 PM CDT Inhaled Oxygen Concentration - - Weight 78.8 kg (173 lb 12.8 oz) 11/04/2023 3:00 PM CDT Height 172.7 cm (5' 8) 11/04/2023 3:00 PM CDT Body Mass Index 26.43 11/04/2023 3:00 PM CDT Plan of Treatment Upcoming Encounters Date Type Department Care Team (Late st Contact Info) Description 11/18/2023 1:20 PM CDT Office Visit [facility] [address] [place] [address] Jens Blanco MD [address] [facility] [place] [address] 11/19/2023 8:45 AM CDT Orders Only [facility] [address] [place] [address] Lab, [place] 11/21/2023 2:30 PM CDT Office Visit [facility] [address] [place] [address] Angelo Acevedo MD [address] [place] [address] Health Maintenance Due Date Last Done Comments Depression screening for age 12+ 11/14/2023 11/13/2022, 08/15/2022, 11/03/2021, Additional history exists Medicare Wellness for age 65+ 11/14/2023, 11/03/2021, 08/17/2020, Additional history exists Mammogram for age 45-75 12/13/2023 12/13/19 23, 09/18/2021, 03/12/2019, Additional history exists Influenza for age 65+ 03/15/2024 04/10/2023 , 03/27/2022, 05/02/2021, Additional history exists BMI (ht and wt on same day) for age 18+ 11/03/2024 11/04/2023, 08/14/2023, 11/13/2022, Additional history exists Lipids for age 45-75 11/14/2027 11/13/2022, 11/03/2021, 08/17/2020, Additional history exists Colonoscopy through age 75 10/29/203010/29, 10/30/2023, 10/30/2023, Additional history exists Tetanus booster 10/15/2033 10/16/2023, 12/13, 01/12/2006, Additional history exists Hepatitis C screening for ag e 18-79 Completed 03/16/2014 Zoster (shingles) series for age 50+ Completed 09/01/2018, 11/19/2017, 12/25/2012 Pneumococcal series for age 65+ Completed 9, 04/17/2018 DEXA/DXA scan for age 65+ Completed 11/08/2021, COVID-19 vaccine series Completed 04/10/20 23, 11/13/2022, 03/27/2022, Additional history exists Tdap Completed 10/16/2023, 12/25/2012 Procedures Procedure Name Priority Date/Time Associated Diagnosis Comments PATH TISSUE EXAM Routine 10/30/2023 10:1 5 AM CDT Screening for colon cancer Polyp of colon, unspecified part of colon, unspecified type Diverticulosis of large intestine without hemorrhage COLONOSCOPY 10/30/2023 9:44 AM CDT COLONOSCOPY SCREENING Routine 10/30/2023 9:10 AM CDT Screening for colon cancer XR CHEST 2 VIEWS PA AND LATERAL Routine 10/16/2023 12:52 PM CDT Chronic cough TRICHOMONAS, EMILY, AND BACTERIAL VAGINOSIS BY KATE STAT 08/10/2023 4:15 PM TAPE KELLER OPERATOR Dysuria URINALYSIS MICROSCOPIC STAT 08/10/2023 3:42 PM TAPE KELLER OPERATOR Dysuria URINE CULTURE Routine 08/10/2023 3:42 PM TAPE KELLER OPERATOR Dysuria UA W/ SEDIMENT EXAM REFLEXED PER CRITERIA STAT 08/10/2023 3:42 PM TAPE KELLER OPERATOR Dysuria XR MAMMO DEMI BILAT SCREEN Routine 12/12/2022 1:44 PM CDT Visit for screening mammogram LIPID PANEL W REFLEX MEASURED LDL Routine 11/13/2022 4:00 PM CDT Mixed hyperlipidemia XR DXA BONE DENSITY 2 SITES AXIAL Routine 11/08/2021 9:28 AM CDT Post-menopausal ANTI HCV Routine 03/16/2014 8:43 AM CDT Need for hepatitis C screening test from Last 3 Months or Most Recently Relevant to Health Maintenance Results * PATH TISSUE EXAM (10/30/2023 10:15 AM CDT) Case Report Pathology Report ?Case: [id number] ? Authorizing Provider: ??Nikita Mobley MD ?? Collected: ? 10/30/2023 1015 ? Ordering Location: ? [facility] ?? Received: ?10/30/2023 1323 ? Clinic ? Pathologist: ? Ren Acuna MD ? Specimen: ?Cecal Polyp ? 10/31/2023 11:25 AM CDT [facility] Final Diagnosis D) COLON, CECUM, POLYPECTOMY: 1. Tubular adenoma 2. Negative for high grade dysplasia 3. Per the colonoscopy report: ?? a. Polyp size: 3 mm ?? b. Resection: Complete ?? c. Retrieval: Complete 10/31/2023 11:25 AM T Secured Mail [facility] Clinical Information Screening colonoscopy 10/31/2023 11:25 AM CDT [facility] Gross Description A) Received in formalin is a tsang mucosal fragment measuring 5 mm in greatest dimension, which is entirely submitted in one cassette. It is labeled with the patient's name and designated Lawanda Bates 10/30/2023 8:59 PM 10/31/2023 11:25 AM CDT [facility] Microscopic Description The final diagnosis is based on microscopic examination of appropriate sections of all specimens. 10/31/2023 11:25 AM CDT [facility] Additional Information Interpreted at [facility] - [address] [facility] [address], [place] [address] 10/31/2023 11:25 AM CDT [facility] Other (Cecal Polyp) Non-Blood / Unknown 10/30/2023 10:15 AM CDT 10/30/2023 1:23 PM CDT Nikita Mobley MD PATHOLOGY/CYTOLOG Y [facility] [address] [place] [address], [place] * COLONOSCOPY (10/30/2023 9:44 AM CDT) 10/30/2023 9:44 AM CDT Narrative Transcriptions Nikita Mobley MD - 10/30/2023 10:27 AM CDT Patient Name: Doreen Chaudhary Procedure Date: 10/30/2023 Gender: Female Date of : 1955 Admit Type: Outpatient Procedure: Colonoscopy Proceduralist: Nikita Mobley MD , Britta Addison RN (Nurse), Crystal Sheppard (Nurse) Referring MD: Angelo Acevedo Indications/Pre-Op Diagnosis: Screening for colorectal malignant neoplasm, Last colonoscopy: December 2012 Medications: Fentanyl 100 micrograms IV, Midazolam 2 mgIV, The level of sedation administered wasmoderate Procedure Description: The patient had risks, benefits and alternatives explained to andgave informed consent. The patient had a stable cardiopulmonary status and judged an adequate candidate for conscious sedation. The [id number] was passed through the anus and advanced to the cecum, identified by appendiceal orifice and ileocecal valve. Thecolonoscopy was performed without difficulty. The patient tolerated the procedure well. The quality of the bowel preparation was good. The ileocecal valve, appendiceal orifice, and rectum were photographed. Complications: No immediate complications. Estimated Blood Loss & Specimen: Estimated blood loss: none. Specimen collected - Yes and sent to Laboratory Findings: The perianal and digital rectal examinations were normal. A 3 mm polyp was found in the cecum. The polyp was sessile. The polyp was removed with a cold snare. Resection and retrieval werecomplete. Scattered small-mouthed diverticula were found in the sigmoidcolon. The exam was otherwise without abnormality. Impressions/Post-Op Diagnosis: - One 3 mm polyp in the cecum, removed with a cold snare. Resectedand retrieved. - Diverticulosis in the sigmoid colon. - The examination was otherwise normal. Recommendation: - Patient has a contact number available for emergencies. The signsand symptoms of potential delayed complications were discussed with the patient. Return to normal activities tomorrow. Written discharge instructions were provided to the patient. - Resume previous diet. - Continue present medications. - Await pathology results. - Repeat colonoscopy is recommended. The colonoscopy date will be determined after pathology results from today's exam become available for review. Moderate Sedation: A time out was performed before the procedure. Moderate (conscious) sedation was administered by the endoscopy nurse and supervised bythe endoscopist. The following parameters were monitored: oxygensaturation, heart rate, blood pressure, EKG, CO2, respiratory rate, adequacy of pulmonary ventilation and reponse to care. Please refer to the patient's medical record flowsheets and nursing notes for moderate sedation details. Total physician intraservice time was 16 minutes. Nikita Mobley MD 10/30/2023 10:27:05 AM This report has been signed electronically. Note Initiated On: 10/30/2023 9:44 AM Procedure Code(s): --- Professional --- 45370, Colonoscopy, flexible; with removalof tumor(s), polyp(s), or other lesion(s) bysnare technique Diagnosis Code(s): --- Professional --- Z12.11, Encounter for screening formalignant neoplasm of colon D12.0, Benign neoplasm of cecum K57.30, Diverticulosis of large intestine without perforation or abscess withoutbleeding CPT copyright 2022 [employer]. All rights reserved. The codes documented in this report are preliminary and upon resin shaver reviewmay be revised to meet current compliance requirements. Scope In: 10:06:47 AM Scope Withdrawal Time 0 hours 9 minutes 30 seconds Scope Out: 10:20:54 AM Nikita Mobley MD PROCEDURE ORD * XR CHEST 2 VIEWS PA AND LATERAL (10/16/2023 12:52 PM CDT) Anatomical Region Laterality Modality CHEST, THORAX, Lung, HEART Compu ashlie Radiography 10/17/2023 9:57 AM CDT Impressions 10/17/2023 9:57 AM CDT Stable chest x-ray. No evidence of acute pulmonary disease. Dictated by Jens Helms MD @ 10/17/2023 9:57:54 AM (Electronically Signed) Narrative 10/17/2023 9:57 AM CDT For Patients: ??As a result of the Century Cures Act, medical imaging exams and procedure reports are released immediately into your electronic medical record. ??You may view this report before your referring provider. ??If you have questions, please contact your health care provider. INDICATION: Chronic cough. Comparison: 06/22/2021. FINDINGS: PA and lateral views of the chest were obtained. The cardiac silhouette and pulmonary vasculature are within normal limits. The lungs are clear bilaterally. There is scoliosis and degenerative changes in the spine. Procedure Note Jens Helms MD - 10/17/2023 For Patients: As a result of the Cures Act, medical imagingexams and procedure reports are released immediately into your electronicmedical record. You may view this report before your referring provider.If you have questions, please contact your health care provider. INDICATION: Chronic cough. Comparison: 06/22/2021. FINDINGS: PA and lateral views of the chest were obtained. The cardiac silhouetteand pulmonary vasculature are within normal limits. The lungs are clearbilaterally. There is scoliosis and degenerative changes in the spine. IMPRESSION: Stable chest x-ray. No evidence of acute pulmonary disease. Dictated by Jens Helms MD @ 10/17/2023 9:57:54 AM (Electronically Signed) Angelo Acevedo MD GENERAL IMAGIN G * Vaginal-TRICHOMONAS, EMILY, AND BACTERIAL VAGINOSIS BY KATE (08/10/2023 4:15 PM TAPE KELLER OPERATOR) Pathologist [facility] EMILY SPECIES Negative Negative 10:45 PM TAPE KELLER OPERATOR [facility] EMILY GLABRATA Negative Negative 08/11/2023 10:45 PM TAPE KELLER OPERATOR [facility] TRICHOMONAS VVA Negative Negative 10:45 PM TAPE KELLER OPERATOR [facility] BACTERIAL VAGINOSIS Negative Negative 08/11/2023 10:45 PM TAPE KELLER OPERATOR [facility] Other VAGINAL SWAB / Unknown Non-Blood / Unknown 08/10/2023 4:15 PM TAPE KELLER OPERATOR 08/10/2023 4:53 PM TAPE KELLER OPERATOR Rosario Lopez NP [facility] [address] [place] [address], * (ABNORMAL) URINALYSIS MICROSCOPIC (08/10/2023 3:42 PM TAPE KELLER OPERATOR) Pathologist [facility] RBC 3-5(A) 0-2, None Seen /HPF 08/10/2023 3:53 PM TAPE KELLER OPERATOR [facility] WBC 3-5 0-2, 3-5, None Seen /HPF 08/10/2023 3:53 PM TAPE KELLER OPERATOR [facility] BACTERIA Few None Seen, Rare, Few Bacteria/H PF 08/10/2023 3:53 PM TAPE KELLER OPERATOR [facility] EPITHELIAL CELLS Few None Seen, Few Epi/HPF 08/10/2023 3:53 PM TAPE KELLER OPERATOR [facility] Urine URINE SPECIMEN / Unknown Non-Blood / Unknown 08/10/2023 3:42 PM TAPE KELLER OPERATOR 08/10/2023 3:42 PM TAPE KELLER OPERATOR Margi E Santo IMMUNOLOGY TEACHER URINE [facility] [address] [place] [address] * (ABNORMAL) URINE CULTURE [19630.2] (08/10/2023 3:42 PM TAPE KELLER OPERATOR) CULTURE RESULT(A) 08/13/2023 6:51 AM TAPE KELLER OPERATOR [facility] CULTURE 50,000-100,000 CFU/mL Escherichia coli 08/13/2023 6:51 AM TAPE KELLER OPERATOR [facility] Urine URINE SPECIMEN / Unknown Non-Blood / Unknown 08/10/2023 3:42 PM TAPE KELLER OPERATOR 08/10/2023 3:42 PM TAPE KELLER OPERATOR Narrative Organism Antibiotic Method Susceptibility Escherichia coli TRIMETHOPRIM/SULF <=1/19: S Escherichia coli AMPICILLIN <=2: S Escherichia coli CEFAZOLIN-UC <=4: S Comment:Cefazolin-UC interpretations are for therapy of uncomplicated UTIs due to E.coli, K.pneumoniae, or P.mirablis. Cefazolin breakpoint is used as a surrogate to predict results for the oral agents - cefdinir, cefuroxime, and cephalexin, when used for therapy of uncomplicated UTIs due to E coli, K, pneumoniae, and P. mirabilis. The FDA recommends cefadroxil susceptibility can be deduced from cefazolin. Escherichia coli GENTAMICIN <=1: S Escherichia coli CEFTRIAXONE <=1: S Escherichia coli CEFTAZIDIME <=1: S Escherichia coli LEVOFLOXACIN <=0.12: S Escherichia coli CIPROFLOXACIN <=0.25: S Escherichia coli PIPERACILLIN/TAZO <=4: S Escherichia coli AMPICILLIN/SULBACTAM <=2: S Escherichia coli CEFEPIME <=1: S Escherichia coli TOBRAMYCIN <=1: S Escherichia coli MEROPENEM <=0.25: S Escherichia coli NITROFURANTOIN <=16: S Margi Blanchard NP MICROBIOLOGY [facility] [address] [place] [address], * (ABNORMAL) UA W/ SEDIMENT EXAM REFLEXED PER CRITERIA (UA w/ reflex micro if positive) [05229.2] (08/10/2023 3:42 PM TAPE KELLER OPERATOR) COLOR Yellow Yellow Color 08/10/2023 3:50 PM [facility] CLARITY Slightly Cloudy(A) Clear Clarity 08/10/2023 3:50 PM [facility] SPECIFIC GRAVITY,URINE 1.025 1.010, 1.015, 1.020, 1.025 08/10/2023 3:50 PM [facility] PH,URINE 6.0 6.0, 7.0, 8.0, 5.5, 6.5, 7.5, 8.5 08/10/2023 3:50 PM [facility] UROBILINOGEN, QUALITATIVE Normal Normal EU/dl 08/10/2023 3:50 PM [facility] PROTEIN, URINE Negative Negative mg/dL 08/10/2023 3:50 PM [facility] GLUCOSE, URINE Negative Negative mg/dL 08/10/2023 3:50 PM [facility] KETONES,URINE Negative Negative mg/dL 08/10/2023 3:50 PM [facility] BILIRUBIN,URI NE Negative Negative 08/10/2023 3:50 PM [facility] OCCULT BLOOD,URINE Small(A) Negative 08/10/2023 3:50 PM TAPE KELLER OPERATOR [facility] NITRITE Negative Negative 08/10/2023 3:50 PM TAPE KELLER OPERATOR [facility] LEUKOCYTE ESTERASE Moderate(A) Negative 08/10/2023 3:50 PM TAPE KELLER OPERATOR [facility] Urine URINE SPECIMEN / Unknown Non-Blood / Unknown 08/10/2023 3:42 PM TAPE KELLER OPERATOR 08/10/2023 3:42 PM TAPE KELLER OPERATOR Margi Blanchard NP URINE [facility] [address] [place] [address] * XR MAMMO DEMI BILAT SCREEN (12/12/2022 1:44 PM CDT) Anatomical Region Laterality Modality BREASTS, Breast Left, Breast Right Bilateral Mammography Impressions 12/13/2022 3:08 PM CDT ??There is no radiographic evidence for malignancy. ??Recommend annual mammograms. MAMMOGRAM ASSESSMENT: ??ACR 1 Negative PATIENTS: You will also receive a letter with your examination results in an easy to read format. ??If you have questions about your results, please contact your referring provider. Narrative 12/13/2022 3:08 PM CDT For Patients: As a result of the Cures Act, medical imaging exams and procedure reports are released immediately into your electronic medical record. You may view this report before your referring provider. If you have questions, please contact your health care provider. XR MAMMO DEMI BILAT SCREEN [[id number]] CLINICAL HISTORY: ??This is an asymptomatic 67 y.o. patient. INDICATION FOR EXAM: Mammogram Screening. TECHNIQUE: CC & MLO views were obtained. ??This study was evaluated with the assistance of Computer-Aided Detection. Breast Tomosynthesis was used in interpretation. COMPARISON FILM: Yes 09/18/21 [facility] 03/12/19 [facility] FINDINGS: ??The breasts have scattered areas of fibroglandular density. There are no dominant masses, suspicious micro calcifications or areas of architectural distortion. Angelo Acevedo MD MAMMO * (ABNORMAL) LIPID PANEL W REFLEX MEASURED LDL (11/13/2022 4:00 PM CDT) CHOLESTEROL,TOTAL 266 mg/dL 023 3:31 PM CDT [facility] Comment: Cholesterol, Total Reference Ranges Desirable <200 mg/dL Borderline 200-239 mg/dL High >=240 mg/dL TRIGLYCERIDES 165(H) <150 mg/dL 11/14/2022 3:31 PM CDT [facility] HDL CHOLESTEROL 58 >40 mg/dL 3 3:31 PM CDT [facility] NON-HDL CHOLESTEROL 208(H) <145 mg/dl 11/14/2022 3:31 PM CDT [facility] CHOL/HDL RATIO 4.59(H) <4.50 11/14/2022 3:31 PM CDT [facility] LDL CHOLESTEROL 175(H) <=130 mg/dL 11/14/2022 3:31 PM CDT [facility] VLDL CHOLESTEROL 33 >30 mg/dL 11/15/19 23 3:31 PM CDT [facility] PROVIDER ORDERED STATUS RANDOM 11/14/2022 3:31 PM T [facility] Blood BLOOD SPECIMEN / Unknown Venipuncture / Unknown 11/13/2022 4:00 PM CDT 11/13/2022 4:00 PM CDT Angelo Acevedo MD CHEMISTRY [facility] [address] [place] [address], * (ABNORMAL) XR DXA BONE DENSITY 2 SITES AXIAL (11/08/2021 9:28 AM CDT) Anatomical Region Laterality Modality Spine, HIPS, HIPL, HIPR Other Impressions 11/13/2021 8:05 AM CDT Osteoporosis. RECOMMENDATIONS: The National Osteoporosis Foundation recommends pharmacologic treatment for patients with T-scores of -2.5 or less, patients with prior history of fragility fractures, or patients with 10-year probability of greater than 3% at hips or greater than 20% of suffering major osteoporotic fractures. Recommend continued optimization of calcium and vitamin D intake through dietary means and/or supplementation and regular exercise. Consider pharmacologic therapy for osteoporosis. Follow-up bone density reading in 2 years if therapy initiated to assess therapeutic efficacy. Viky Hurtado PA-C [facility] 11/13/2021 Narrative 11/13/2021 8:05 AM CDT For Patients: Results are automatically released to your [facility] account once available, in compliance with federal regulations. This means that you may see your results before your provider has had a chance to review them. Please allow 2-3 business days for your provider to comment on the results. XR DXA Bone Mineral Density (BMD) EXAM LOCATION: [address] [address] PATIENT NAME: Doreen Chaudhary DATE OF : 1955 EXAM DATE: 11/08/2021 REQUESTING PROVIDER: Angelo Acevedo MD GENDER AT : female HEIGHT: 5' 8.5 (11/03/2021) WEIGHT: ??173 lb 9.6 oz (11/03/2021) MENOPAUSAL STATUS: Postmenopausal RACE/ETHNICITY: White RISK FACTORS: Family History of Osteoporosis, Family History of Hip Fracture (parental) and White Race CURRENT MEDICATION FOR BONE LOSS: NONE INDICATION: Post-Menopause COMPARISON DATE(S): 2019 DXA scans are compared to prior studies for a patient only when the two (or more) studies were performed on the same scanner. It is not possible to compare data generated on one scanner to data from another because there are not standards in DXA equipment. This applies even if the two scanners are made by the same general manager food. PROCEDURE: Dual-energy x-ray absorptiometry performed with routine technique. Reporting is completed in the form of a T-score. The T-score represents the standard deviation from peak bone mass based on young healthy adult. A Z-score is used for diagnosis in premenopausal women, and for men under the age of 50. FINDINGS: RESULT LUMBAR SPINE L2 - L4 ??BMD: 1.285 g/cm2 T-Score: + 0.6 Z-Score: + 1.8 Change from prior in 2019: ??Decrease 2.4%. RESULTS FEMUR Left femoral neck BMD: 0.688 g/cm2 T-Score: - 2.5 Z-Score: - 1.2 Change from prior in 2019: ??Decrease 7.3%. Right femoral neck BMD: 0.685 g/cm2 T-Score: - 2.5 Z-Score: - 1.2 Change from prior in 2019: ??Decrease 2.3% Left hip BMD: 0.798 g/cm2 T-Score: - 1.7 Z-Score: - 0.6 Change from prior in 2019: ??Decrease 6.7%. Right hip BMD: 0.791 g/cm2 T-Score: - 1.7 Z-Score: - 0.6 Change from prior in 2019: ??Decrease 5.2%. WHO criteria: Normal: T-score at or above -1 SD Osteopenia: T-score between -1.1 and -2.4 SD Osteoporosis: T-score at or below -2.5 SD Angelo Acevedo MD DEXA * ANTI HCV [[id number]] (03/16/2014 8:43 AM CDT) HEPATITIS C ANTIBODY Non-Reacti ve Non-Reacti ve 03/16/2014 8:16 PM CDT [facility] Blood specimen (specimen) BLOOD SPECIMEN / Unknown Venipuncture / Unknown 03/16/2014 8:43 AM CDT 03/16/2014 8:43 AM CDT Narrative [facility] - 03/16/2014 8:16 PM CDT Antibodies to HCV not detected; does not exclude the possibility of exposure to HCV. Angelo Acevedo MD SEND OUTS [facility] [address] [place] [address], [place] from Last 3 Months or Most Recently Relevant to Health Maintenance Care Teams International Controller Relationship Specialty Start Date End Date Angelo Acevedo MD [address] [place] [address] PCP - General 01/21/09
--- OUTSIDE RECORDS SUMMARY | 2023-11-06 06:58 | XMS_ITS | Continuity of Care Document ---
Author Name Unknown Organization [facility] Address [address] [address] [place] [address] Phone Care Team Providers Care Research Manufacturing Operator Name Role Phone Robin Rodriguez MD Unavailable Unavailable Allergies, Adverse Reactions, Alerts Substance Reaction Status Criticality No Known allergies Medications Medication Instructions Dosage Effective Dates (start - stop) Status Comments ESTRACE (unknown strength) Take 1 tablet by mouth daily Not Available - Active Zyrtec unknown Take 1 tablet by mouth daily - Active CALCIUM (unknown strength) Take two tablets by mouth daily Not Available - Active MULTI-VITAMINS (unknown strength) Take 1 tablet by mouth daily Not Available - Active Advance Directives Directive Yes / No Effective Date File Name No Information Encounters Encounter Description Practice Location Reason(s) For Visit Diagnoses Date Provider Providers Copied on Encounter [facility], [address] [address], [place], [place], [id number], [place] tel:[phone] [facility] No Information Michael Kelly. [address] [facility] [address], [place], [place], [id number], [place]. tel:[phone] Referring Provider: Alyssia Fermin MD, [address], [address]. tel:[phone] Family History Family Member Type Diagnosis Age At Onset No Information Payers Payer name Insurance type Covered libertarian ID Authoriza tion(s) [employer] [place] [id number] Social History Type Description Quantity Date Captured Comments Sex Female Smoking Status No Information Chief Complaint And Reason For Visit No Information Reason For Referral Reason For Referral No Information History Of Present Illness Encounter Date Complaint History Of Prese nt Illness No Information Functional Status Date Functional Assessmen t No Information Instructions Date Instruction Additional Infor mation No Information Assessments Type Assessment Date No Information Patient Care Teams Name Effective Dates (start - stop) Status Members No Information
--- OUTSIDE RECORDS SUMMARY | 2023-11-06 06:58 | XMS_ITS | Encounter Summary ---
Author Name Unknown Organization [facility] Address [address] [place] [address] Care Team Providers Care Associate Merchandiser Name Role Phone Angelo Acevedo MD Primary Care Provider [phone] Encounter Details Date Type Department Care Team (Late st Contact Info) Description 04/28/2015 Orders Only [facility] [address] [place] [address] Jens Loja MD [address] [place] [address] [place] [id number] Social History Tobacco Use Types Packs/Day Years Used Date Smoking Tobacco: Never Assessed Sex and Gender Information Value Date Recorded Sex Assigned at Not on file Gender Identity Not on file Sexual Orientation Not on file documented as of this encounter Plan of Treatment Not on file documented as of this encounter Visit Diagnoses Not on filedocumented in this encounter Care Teams Associate Merchandiser Relationship Specialty Start Date End Date Angelo Acevedo MD [address] [place] [address] PCP - General Family Practice 06/09/21 documented as of this encounter
--- OUTSIDE RECORDS SUMMARY | 2023-11-06 06:58 | XMS_ITS | Encounter Summary ---
Author Name Unknown Organization [facility] Address [address], [place] [address] Care Team Providers Care Environmental Studies Program Director Name Role Phone Angelo Acevedo MD Primary Care Provider [phone] Encounter Details Date Type Department Care Team (Late st Contact Info) Description 05/29/2023 Notes/Orders [facility] [address] [place] [address] Jens Loja MD [address] [place] [address] [place] [phone] Social History Tobacco Use Types Packs/Day Years [...] on filedocumented in this encounter Care Teams Environmental Studies Program Director Relationship Specialty Start Date End Date Angelo Acevedo MD [address] [place] [address] PCP - General Family Practice 06/09/21 documented as of this encounter
--- NOTE | 2023-11-06 07:21 | W.PM.H&PU ---
History & Physical Update History & Physical Update H&P Reviewed and patient assessed: No changes noted
[2023-11-06] MEDS: LACTATED RINGERS 1000 ML 1,000 ML 100 ML IV (07:45)
[2023-11-06] MEDS: ETHYL CHLORIDE 1 APPLICATION 1 APPLIC TOPICAL (07:45)
[2023-11-06] MEDS: SODIUM CHLORIDE 0.9 % (FLUSH) 10 ML SYRINGE IVF (07:46)
--- NOTE | 2023-11-06 08:15 | XR_ITS ---
Patient: JOAQUIN SANDERS Facility:?[facility] Patient ID:?[id number] Site Patient ID:?[id number]. Site :?1955 Study:?XRay-Extremity Right FOOT-11/06/2023 9:24:19 AM Ordering Physician:NEHAL Final Report: INDICATION: Intra are were removal. TECHNIQUE: Two spot images of the right foot. 2.8 seconds fluoro time. FINDINGS: Images taken during surgery. Dictated by Kit Ty MD @ 11/06/2023 4:30:34 PM Signed by:?Kit Ty MD @11/06/2023 4:30:34 PM (Electronic Signature)
[2023-11-06] MEDS: CEFAZOLIN 2 GM in 0.9 % SODIUM CHLORIDE Mini-bag 100 ML IVPB (08:40)
[2023-11-06] MEDS: BUPIVACAINE 0.5% 30 ML INJECTION (08:58)
--- NOTE | 2023-11-06 09:17 | P.ORPRC_ITS ---
Procedure Note Date of procedure: 11/06/23 Procedure: PREOPERATIVE DIAGNOSES: 1. Right foot 5th metatarsal retained symptomatic deep implant POSTOPERATIVE DIAGNOSES: 1. Right foot 5th metatarsal retained symptomatic deep implant NAME OF OPERATION: 1. Right foot 5th metatarsal deep implant removal 2. 32491 - intraoperative fluoroscopy up to 1 hour. SURGEON: Thang Grossman MD PAINTER AND BODY MECHANIC APPRENTICE: Harpreet Addison PA-C; Of note, an customer relations assistant was critical for this case to aide in patient positioning, leg manipulation, tissue retraction, closure, & splinting. ANESTHESIA: General LMA EBL: 2 mL IMPLANTS: Hook plate and 5 screws with T8 heads were removed completely. TOURNIQUET: 12 minutes at 225 torr calf tourniquet INDICATIONS: The patient is a pleasant 68-year-old female who sustained a right foot injury approximately 4 years ago. She underwent ORIF with plate and screws. This went on to heal appropriately. Recently, she has noted increasing pain discomfort about the right lateral midfoot region at the 5th metatarsal base. She requested to be taken plan time removed. FINDINGS: Right 5th metatarsal base plate and screws in place to start. These were all removed without difficulty. PROCEDURE: Following a thorough discussion of risks, benefits, and alternatives, consent was obtained and the right foot was marked. The patient was brought to the operating room and placed supine on the operating table. Induction of anesthesia was undertaken. Appropriate time out was performed identifying proper patient, site and procedure. 1 gram of iv Ancef was administered within 1 hour of incision preoperatively. The right lower extremity was prepped and draped in the appropriate sterile fashion using ChloraPrep. The limb was exsanguinated and the tourniquet inflated. A longitudinal incision was made in line with the previous incision overlying the 5th metatarsal base. Sharp incision through skin allowed us to encounter the scar tissue. This was also sharply incised 15 blade. The plate and screws were visualized and freed from the surrounding tissue. All 5 screws were visualized. The proper screwdriver was identified and allowed us to remove each of those screws as well as the plate. All hardware was removed without d ifficulty. The screw holes were debrided with a combination of curette and rongeur. Thorough irrigation normal saline was performed. Fluoroscopic image was obtained to confirm that all metallic hardware had been removed completely. The fracture was again confirmed to be united. Closure was performed with # 3-0 Vicryl and 4-0 Monocryl for subcutaneous and subcuticular closure, respectively. Dressings were applied and a sugar-tong splint was applied. The patient was awoken from anesthesia and transferred to the PACU in stable condition. PLAN: 1. Elevate operative extremity. 2. Encouraged ice. 3. Tylenol No. 3 for pain as needed, per her request 4. Follow up with PA visit in 1-2 weeks wound check. Advance activities gradually as tolerated. Hard sole shoe to be worn certainly on uneven ground until pain allows transition to regular shoe. 5. Weightbear as tolerated operative extremity
--- NOTE | 2023-11-06 09:48 | W.ANESCHARGE ---
Anesthesia Charges Start Date/Time Anesthesia Start Date: 11/06/23 Anesthesia Start Time: 08:33 Stop Date/Time Anesthesia Stop Date: 11/06/23 Anesthesia Stop Time: 09:47
[2023-11-06] MEDS: MEPERIDINE 25 MG/ML INJ 12.5 MG IVP ×2 (10:11→10:31)
--- NOTE | 2023-11-06 10:31 | W.ANESCHARGE ---
Anesthesia Charges Start Date/Time Anesthesia Start Date: 11/06/23 Anesthesia Start Time: 08:33 Stop Date/Time Anesthesia Stop Date: 11/06/23 Anesthesia Stop Time: 09:47 Summary Extremes of Age - Over 70 or under 1: MDA
== END 2023-11-06 12:16 | disposition home or self-care (01) ==
PROVIDERS: PCP Family Medicine; Visit Provider Orthopaedic Surgery Sports Medicine
PROC: (CPT 20680; principal; 2023-11-06 08:15)
DX: T84.69XA Infection and inflammatory reaction due to internal fixation device of other site, initial encounter (principal)
CPT/HCPCS: 20680; 01480; 73620; 76000; 99100; J0665; J0690; J1100; J2175; J2405; J2704; J3010; J7120

== ENCOUNTER 2023-12-16 13:16 | Outpatient (RCR) | payer MEDICARE, BC, SELFPAY | END 2024-02-26 07:32 | disposition home or self-care (01) | PROVIDERS: PCP Family Medicine; Visit Provider Family Medicine | DX: Z53.20 Procedure and treatment not carried out because of patient's decision for unspecified reasons (principal) | CPT/HCPCS: 97112; 97162 ==

== ENCOUNTER 2023-12-16 15:22 | Outpatient (CLI) | payer MEDICARE, BC, SELFPAY ==
--- OUTSIDE RECORDS SUMMARY | 2023-12-16 15:25 | XMS_ITS | Clinical Summary ---
Author Organization [employer] [facility] Address [place], [place] [address] Care Team Providers Care Manufacture Specialist Name Role Phone Angelo Acevedo MD Primary Care Provider Allergies No known active allergies Medications Medication Sig Dispensed Refills Start Date End Date Status gabapentin (NEURONTIN) 300 mg capsuleIndication s:Peripheral sensory neuropathy One oral am and midday, three at bedtime. Increase at bedtime dose to 4 capsules if needed. 540 Capsule 3 3 Active LORazepam (ATIVAN) 1 mg tabletIndications :Anxiety TAKE 1 TABLET BY MOUTH EVERYDAY AT BEDTIME NEEDED FOR ANXIETY OR NEEDED FOR SLEEP. 20 Tablet 4 Active omeprazole (PRILOSEC) 20 mg Delayed-Release capsuleIndication s:Chronic GERD TAKE 1 CAPSULE BY MOUTH EVERY DAY BEFORE MEALS 90 Capsule 2 4 Active buPROPion (WELLBUTRIN XL) 150 mg Extended-Release tabletIndications :Anxiety state Take 2 Tablets (300 mg) by mouth once daily. 180 Tablet 3 4 Active citalopram (CELEXA) 20 mg tabletIndications :Anxiety state Take 1 Tablet (20 mg) by mouth once daily in the morning. 90 Tablet 3 4 Active atenoloL (TENORMIN) 50 mg tabletIndications :Hypertension Take 1 Tablet (50 mg) by mouth once daily. 90 Tablet 3 4 Active mirtazapine (REMERON) 7.5 mg tabletIndications :Insomnia, idiopathic Take 1 Tablet (7.5 mg) by mouth at bedtime. 20 Tablet 4 Active atenoloL (TENORMIN) 50 mg tabletIndications :Hypertension Take 1 Tablet (50 mg) by mouth once daily. 90 Tablet 3 3 12/07/19 24 Discontinued citalopram (CELEXA) 20 mg tabletIndications :Anxiety state Take 1 Tablet (20 mg) by mouth every morning. 90 Tablet 3 3 12/12/19 24 Discontinued(Reo rder (E-cancel not sent)) omeprazole (PRILOSEC) 20 mg Delayed-Release capsuleIndication s:Chronic GERD Take 1 Capsule (20 mg) by mouth once daily before a meal. 90 Capsule 3 3 12/10/19 24 Discontinued alendronate (FOSAMAX) 70 mg tabletIndications :Osteoporosis, unspecified osteoporosis type, unspecified pathological fracture presence Take 1 Tablet (70 mg) by mouth once a week in the morning. Take on empty stomach with full glass of water. Do not lie down for 1 hr. 12 Tablet 3 3 12/12/19 24 Discontinued(*Pa tient states no longer taking) buPROPion (WELLBUTRIN XL) 150 mg Extended-Release tabletIndications :Anxiety state TAKE 2 TABLETS (300 MG) BY MOUTH ONCE DAILY 180 Tablet 4 12/12/19 24 Discontinued(Reo rder (E-cancel not sent)) LORazepam (ATIVAN) 1 mg tabletIndications :Anxiety TAKE 1 TABLET BY MOUTH EVERYDAY AT BEDTIME NEEDED FOR ANXIETY OR NEEDED FOR SLEEP. 20 Tablet 4 11/26/19 24 Discontinued atenoloL (TENORMIN) 50 mg tabletIndications :Hypertension TAKE 1 TABLET BY MOUTH EVERY DAY 90 Tablet 2 4 12/12/19 24 Discontinued(Reo rder (E-cancel not sent)) Hospital, Clinic, or Other Facility Administered Medication Ordered Dose Route Frequency Start Date End Date Status zoledronic acid in mannitol & water (RECLAST) 5 mg/100 mL pgbk 100 mLIndications:Osteoporosis, unspecified osteoporosis type, unspecified pathological fracture presence 100 mL IV ONE TIME 01/01/2024 01/02/2024 Active zoledronic acid in mannitol & water (RECLAST) 5 mg/100 mL pgbk 100 mLIndications:Osteoporosis, unspecified osteoporosis type, unspecified pathological fracture presence 100 mL IV ONE TIME 12/13/2023 12/13/2023 Ended Active Problems Problem Noted Date Diagnosed Date Insomnia, idiopathic 12/12/2023 Colon polyp 10/31/2023 Overview: Colonoscopy 10/2023 TA, [...] climacteric states 11/11/2007 11/16/2016 Dysthymic disorder 11/11/2007 2 Ingrowing nail 08/05/2007 11/16/2016 Encounters Date Type Department Care Team Description 12/13/2023 Telephone [facility] [address] [facility] [address] Angelo Acevedo MD Medication Management (Schedule reclast) 12/12/2023 1:40 PM CDT Office Visit [facility] [address] [place] [address] Angelo Acevedo MD Medicare ANNUAL (subsequent) Visit (68 year old) 12/12/2023 Travel 12/08/2023 Refill [facility] [address] [facility] [address] Angelo Acevedo MD Refill Request (Omeprazole) 12/06/[address] [address] Angelo Acevedo MD Refill Request (Atenolol) 11/25/[address] [address] Angelo Acevedo MD Refill Request (Lorazepam) 11/19/2023 8:45 AM CDT Orders Only [address] [address] [facility] 11/19/2023 Travel 11/18/2023 1:20 PM CDT Office Visit [address] [address] Jens Blanco MD Allergies (Consult-chronic cough, referred by Dr Acevedo) 11/17/2023 Travel 11/06/2023 Orders Only [facility] Scanner 1 scan: (1-Ord) [place] N[place]-EXTREMITY R/FOOT, 11/06/2023 11/04/2023 2:55 PM CDT Preop Visit [address] [address] Angelo Acevedo MD Preoperative Exam (DOS: 11/06/2023, right foot surgery, Dr. Grossman, [employer] [employer]) 11/04/2023 Travel 11/01/2023 Travel 10/30/2023 9:30 AM CDT Office Visit [address] [address] Nikita Mobley MD Procedure (Colonoscopy/) 10/30/2023 Travel 10/25/[address] [address] Angelo Acevedo MD Refill Request (Lorazepam) 10/23/[address] [address] Nikita Mobley MD Appointment Reminder (Colonoscopy 10/30/23) 10/16/2023 12:45 PM CDT Ancillary Procedure [facility] [address] [place] [address] 10/16/2023 11:45 AM CDT Office Visit [facility] [address] [place] [address] Angelo Acevedo MD Cough (Dry cough, Started a couple years ago/Sneezing and nasal drainage, started about 3 weeks ago) 10/16/2023 Telephone [facility] [address] [place] [address] Nikita Mobley MD Screening 10/16/2023 Travel 10/12/2023 Refill [facility] [address] [place] [address] Angelo Acevedo MD Refill Request (Bupropion) 09/17/2023 Refill [facility] [address] [place] [address] Angelo Acevedo MD Refill Request (Lorazepam) from Last 3 Months Immunizations Name Administration [...] Good Health Mother at 93. Osteoporosis Mother Osteoporosis Sister Anesthesia Problem No Family History Cancer-colon [...] PHQ-2 Answer Date Recorded PHQ-2 TOTAL SCORE 1 12/12/2023 Social Connections Answer Date Recorded Frequency of [...] Sign Reading Time Taken Comments Blood Pressure 111/67 12/12/2023 1:46 PM CDT Pulse 66 12/12/2023 1:46 PM CDT Temperature 36.7 ??C (98 ??F) 08/14/2023 2:58 PM CAR PUSHER Respiratory Rate 16 10/30/2023 10:32 AM CDT Oxygen Saturation 99% 12/12/2023 1:46 PM CDT Inhaled Oxygen Concentration - - Weight 79.5 kg (175 lb 3.2 oz) 12/12/2023 1:46 P M CDT Height 172.2 cm (5' 7.8) 12/12/2023 1:46 PM CDT Body Mass Index 26.8 12/12/2023 1:46 PM CDT Plan of Treatment Upcoming Encounters Date Type Department Care Team (Late st Contact Info) Description 12/23/2023 2:00 PM CDT Appointment [facility] [address] [place] [address] 12/24/2023 1:00 PM CDT Ancillary Procedure [facility] [address] [place] [address] 12/31/2023 1:00 PM CDT Office Visit [facility] [address] [place] [address] Bela Hdz PA [address] [place] [address] 01/01/2024 1:30 PM CDT Nurse/Clinic Staff Only [facility] [address] [place] [address] 01/13/2024 2:40 PM CDT Office Visit [facility] [address] [place] [address] Jens Blanco MD [address] [place] [address] Health Maintenance Due Date Last Done Comments Mammogram for age 45-75 12/13/2023 12/13/19 23, 09/18/2021, 03/12/2019, Additional history exists Influenza for age 65+ 03/15/2024 04/10/2023 , 03/27/2022, 05/02/2021, Additional history exists BMI (ht and wt on same day) for age 18+ 12/11/2024 12/12/2023, 11/04/2023, 08/14/2023, Additional history exists Depression screening for age 12+ 12/12/2024 12/13/2023, 12/12/2023, 11/13/2022, Additional history exists Medicare Wellness for age 65+ 12/12/2024, 11/13/2022, 11/03/2021, Additional history exists Lipids for age 45-75 11/18/2028 11/19/2023, 11/13/2022, 11/03/2021, Additional history exists Colonoscopy through age 75 [...] Procedure Name Priority Date/Time Associated Diagnosis Comments BASIC METABOLIC PANEL Routine 11/19/2023 8:58 AM CDT Essential hypertension LIPID PANEL W REFLEX MEASURED LDL Routine 11/19/2023 8:58 AM CDT Mixed hyperlipidemia VITAMIN D 25 (DEFICIENCY) Routine 11/19/2023 8:58 AM CDT Vitamin D insufficiency SCAN-DIAGNOSTIC REPORT 11/06/2023 12:00 AM CDT PATH TISSUE EXAM Routine 10/30/2023 10:1 5 AM CDT Screening for colon cancer Polyp of colon, unspecified part of colon, unspecified type Diverticulosis of large intestine without hemorrhage COLONOSCOPY 10/30/2023 9:44 AM CDT COLONOSCOPY SCREENING Routine 10/30/2023 9:10 AM CDT Screening for colon cancer XR CHEST 2 VIEWS PA AND LATERAL Routine 10/16/2023 12:52 PM CDT Chronic cough XR MAMMO DEMI BILAT SCREEN Routine 12/12/2022 1:44 PM CDT Visit for screening mammogram XR DXA BONE DENSITY 2 SITES AXIAL Routine 11/08/2021 9:28 AM CDT Post-menopausal ANTI HCV Routine 03/16/2014 8:43 AM CDT Need for hepatitis C screening test from Last 3 Months or Most Recently Relevant to Health Maintenance Results * (ABNORMAL) LIPID PANEL W REFLEX MEASURED LDL (11/19/2023 8:58 AM CDT) Pathologist [facility] CHOLESTEROL,TOTAL 281(H) 100 - 199 mg/dL 11/19/2023 8:13 PM CDT [facility] Comment: Cholesterol, Total Reference Ranges Desirable <200 mg/dL Borderline 200-239 mg/dL High >=240 mg/dL TRIGLYCERIDES 198(H) <150 mg/dL 11/19/2023 8:13 PM CDT [facility] HDL CHOLESTEROL 59 >40 mg/dL 8:13 PM CDT [facility] NON-HDL CHOLESTEROL 222(H) <145 mg/dl 11/19/2023 8:13 PM CDT [facility] TRA [facility]ORATORY CHOL/HDL RATIO 4.76(H) <4.50 11/19/2023 8:13 PM CDT [facility] LDL CHOLESTEROL 182(H) <=130 mg/dL 11/19/2023 8:13 PM CDT [facility] TRAL [facility] VLDL CHOLESTEROL 40(H) <=30 mg/dL 11/19/2023 8:13 PM CDT [facility] PROVIDER ORDERED STATUS RANDOM 11/19/2023 8:13 PM CDT [facility] Blood BLOOD SPECIMEN / Unknown Venipuncture / Unknown 11/19/2023 8:58 AM CDT 11/19/2023 8:59 AM CDT Angelo Acevedo MD CHEMISTRY [facility] [address] [place] [address], * VITAMIN D 25 (DEFICIENCY) (11/19/2023 8:58 AM CDT) VITAMIN D TOTAL 41.2 20.0 - 80.0 ng/mL 11/19/2023 8:13 PM CDT [facility] Blood BLOOD SPECIMEN / Unknown Venipuncture / Unknown 11/19/2023 8:58 AM CDT 11/19/2023 8:59 AM CDT Narrative [facility] - 11/19/2023 8:13 PM CDT ? Vitamin D Status Deficiency: ? <20 ng/mL Insufficiency: ?20-29 ng/mL Sufficiency: ?30-80 ng/mL Possible Toxicity: ??>80 ng/mL Based on [employer] recommendations Biotin supplements may cause clinically significant interference for this test assay. ??If interference is suspected, it is strongly recommended that biotin is discontinued for at least one week prior to retesting. Angelo Acevedo MD SEND OUTS [facility] [address] [place] [address], * (ABNORMAL) BASIC METABOLIC PANEL (11/19/2023 8:58 AM CDT) SODIUM 137 136 - 145 mmol/L 11/19/2023 8:13 PM CDT [facility] POTASSIUM 4.4 3.5 - 5.1 mmol/L 11/19/2023 8:13 PM CDT [facility] CHLORIDE 101 98 - 107 mmol/L 11/19/2023 8:13 PM T [facility] CO2,TOTAL 24 22 - 29 mmol/L 11/19/2023 8:13 PM T [facility] ANION GAP 12 5 - 18 11/19/2023 8:13 PM T [facility] GLUCOSE 97 70 - 99 mg/dL 11/19/2023 8:13 PM T [facility] CALCIUM 9.2 8.8 - 10.2 mg/dL 11/19/2023 8:13 PM T [facility] BUN 19 8 - 23 mg/dL 11/19/2023 8:13 PM T [facility] CREATININE 0.99(H) 0.50 - 0.90 mg/dL 11/19/2023 8:[address] [facility] TRAL [facility]AT[facility] BUN/CREAT RATIO 19 10 - 20 8:13 PM T [facility] eGFR 61(L) >90 mL/min/1.7 3m2 11/19/2023 8:13 PM T [facility] Comment:As of 2021, eG FR is calculated by the CKD-EPI creatinine equation without race adjustment. ??eGFR can be influenced by muscle mass, exercise, and diet. ??The reported eGFR is an estimation only and is only applicable if the renal function is stable. Blood BLOOD SPECIMEN / Unknown Venipuncture / Unknown 11/19/2023 8:58 AM CDT 11/19/2023 8:59 AM CDT Angelo Acevedo MD CHEMISTRY [facility] [address] [place] [address], * SCAN-DIAGNOSTIC REPORT (11/06/2023 12:00 AM CDT) Scanner OTHER * PATH TISSUE EXAM (10/30/2023 10:15 AM CDT) Case Report Pathology Report ?Case: [id number] ? Authorizing Provider: ??Nikita Mobley MD ?? Collected: ? 10/30/2023 1015 ? Ordering Location: ? [facility] ?? Received: ?10/30/2023 1323 ? Clinic ? Pathologist: ? Ren Acuna MD ? Specimen: ?Cecal Polyp ? 10/31/2023 11:25 AM CDT [facility] Final Diagnosis D) COLON, CECUM, POLYPECTOMY: 1. Tubular adenoma 2. Negative for high grade dysplasia 3. Per the colonoscopy report: ?? a. Polyp size: 3 mm ?? b. Resection: Complete ?? c. Retrieval: Complete 10/31/2023 11:25 AM CDT [facility] Clinical Information Screening colonoscopy 10/31/2023 11:25 AM CDT [facility] Gross Description A) Received in formalin is a tsang mucosal fragment measuring 5 mm in greatest dimension, which is entirely submitted in one cassette. It is labeled with the patient's name and designated A. Christopher Mccall Paulo 10/30/2023 8:59 PM 10/31/2023 11:25 AM CDT [facility] Microscopic Description The final diagnosis is based on microscopic examination of appropriate sections of all specimens. 10/31/2023 11:25 AM CDT [facility] Additional Information Interpreted at [facility] - [address] [facility] [address] [address] 10/31/2023 11:25 AM CDT [facility] Other (Cecal Polyp) Non-Blood / Unknown 10/30/2023 10:15 AM CDT 10/30/2023 1:23 PM CDT Nikita Mobley MD PATHOLOGY/CYTOLOG Y [facility] [address] [place] [address], * COLONOSCOPY (10/30/2023 9:44 AM CDT) 10/30/2023 9:44 AM CDT Narrative Transcriptions Nikita Mobley MD - 10/30/2023 10:27 AM CDT Patient Name: Doreen Chaudhary Procedure Date: 10/30/2023 Gender: Female Date of : 1955 Admit Type: Outpatient Procedure: Colonoscopy Proceduralist: Nikita Mobley MD , Britta Addison, RN (Nurse), Crystal Sheppard (Nurse) Referring MD: [...] an adequate candidate for conscious sedation. The [id number] was passed through the anus and advanced [...] 9:44 AM Procedure Code(s): --- Professional --- 35635, Colonoscopy, flexible; with removalof tumor(s), polyp(s), or other lesion(s) bysnare technique Diagnosis Code(s): --- Professional --- Z12.11, Encounter for screening formalignant neoplasm of colon D12.0, Benign neoplasm of cecum K57.30, Diverticulosis of large intestine without perforation or abscess withoutbleeding CPT copyright 2022 [employer]. All rights reserved. The codes documented in this report are preliminary and upon basin cleaner reviewmay be revised to meet current compliance [...] For Patients: ??As a result of the Cures Act, medical [...] Angelo Acevedo MD GENERAL IMAGIN G * XR MAMMO DEMI BILAT SCREEN (12/12/2022 [...] For Patients: As a result of the Century Cures Act, medical imaging exams and procedure reports are released immediately into your electronic medical record. You may view this report before your referring provider. If you have questions, please contact your health care provider. XR MAMMO DEMI BILAT SCREEN [[id number]] CLINICAL HISTORY: ??This is an asymptomatic 67 y.o. patient. INDICATION FOR EXAM: Mammogram Screening. TECHNIQUE: CC & MLO views were obtained. ??This study was evaluated with the assistance of Computer-Aided Detection. Breast Tomosynthesis was used in interpretation. COMPARISON FILM: Yes 09/18/21 [employer] 03/12/19 [employer] FINDINGS: ??The breasts have scattered areas of fibroglandular density. There are no dominant masses, suspicious micro calcifications or areas of architectural distortion. Angelo Acevedo MD MAMMO * (ABNORMAL) XR DXA BONE DENSITY 2 [...] to assess therapeutic efficacy. Viky Hurtado PA-C [employer] [facility] 11/13/2021 Narrative 11/13/2021 8:05 AM CDT For Patients: Results are automatically released to your [employer] ([employer]) account once available, in compliance with federal regulations. This means that you may see your results before your provider has had a chance to review them. Please allow 2-3 business days for your provider to comment on the results. XR DXA Bone Mineral Density (BMD) EXAM LOCATION: [facility] [address] [facility] [address] PATIENT NAME: Doreen Chaudhary DATE OF : [...] two scanners are made by the same decoration checker. PROCEDURE: Dual-energy x-ray absorptiometry performed with routine [...] Angelo Acevedo MD DEXA * ANTI HCV [38983.2] (03/16/2014 8:43 AM CDT) HEPATITIS C ANTIBODY Non-Reacti ve Non-Reacti ve 03/16/2014 8:16 PM CDT [facility] Blood specimen (specimen) BLOOD SPECIMEN / Unknown Venipuncture / Unknown 03/16/2014 8:43 AM CDT 03/16/2014 8:43 AM CDT Narrative [facility] - 03/16/2014 8:16 PM CDT Antibodies to HCV not detected; does not exclude the possibility of exposure to HCV. Angelo Acevedo MD SEND OUTS [facility] [address] [place] [address], from Last 3 Months or Most Recently Relevant to Health Maintenance Care Teams Manufacture Specialist Relationship Specialty Start Date End Date Angelo Acevedo MD [address] [place] [address] [facility] - General 01/21/09
--- OUTSIDE RECORDS SUMMARY | 2023-12-16 15:25 | XMS_ITS | Encounter Summary ---
Author Organization [facility] Address [address], [place] [address] Care Team Providers Care Senior Financial Consultant Name Role Phone Angelo Acevedo MD Primary Care Provider [phone]- [phone] Encounter Details Date Type Department Care Team (Late st Contact Info) Description 05/29/2023 Notes/Orders [facility] [address] [place] [address] Jens Loja MD [address] [place] [address] [place] [address] Social History Tobacco Use Types Packs/Day Years [...] on filedocumented in this encounter Care Teams Senior Financial Consultant Relationship Specialty Start Date End Date Angelo Acevedo MD [address] [place] [address] PCP - General Family Practice 06/09/21 documented as of this encounter
--- OUTSIDE RECORDS SUMMARY | 2023-12-16 15:25 | XMS_ITS | Encounter Summary ---
Author [facility] Address [address] [place] [address] Care Team Providers Care Interface Designer Name Role Phone Angelo Acevedo MD Primary Care Provider [phone] Encounter Details Date Type Department Care Team (Late st Contact Info) Description 04/28/2015 Orders Only [facility] [address] [place] [address] Jens Loja MD [address] [place] [address] [place] [address] Social History Tobacco Use Types Packs/Day Years Used Date Smoking Tobacco: Never Assessed Sex and Gender Information Value Date Recorded Sex Assigned at Not on file Gender Identity Not on file Sexual Orientation Not on file documented as of this encounter Plan of Treatment Not on file documented as of this encounter Visit Diagnoses Not on filedocumented in this encounter Care Teams Interface Designer Relationship Specialty Start Date End Date Angelo Acevedo MD [address] [place] [address] PCP - General Family Practice 06/09/21 documented as of this encounter
--- OUTSIDE RECORDS SUMMARY | 2023-12-16 15:25 | XMS_ITS | Clinical Summary ---
Author Organization [facility] Address [address], [place] [address] Care Team Providers Care Ear Flap Binder Name Role Phone Angelo Acevedo MD Primary Care Provider [phone] Source Comments You are receiving this document as you are listed as the primary care provider,follow-up provider, or the patient has been referred to you for consultation.This is in compliance with the Medicare and[facility] EHR Incentive Program,which states Providers who transition their patient to another setting of careor provider of care or refers their patient to another provider of care shouldprovide summary care record for each transition of care or referral. [employer] Allergies No known active allergies Medications Medication Sig Dispensed Refills Start Date End Date Status ATENolol (AKA TENORMIN) 50 MG tabletIndications:SAGE URIASSTEFAN [facility] Apr 28, 2015 2:33 PM Received from: External Pharmacy Indications: PN: JAGDISH STEFAN M [facility] Apr 28, 2015 2:33 PM Received from: External Pharmacy 02/26/2015 Active citalopram (AKA CELEXA) 20 MG tabletIndications:SAGE URIASSTEFAN [facility] Apr 28, 2015 2:33 PM Received from: External Pharmacy Indications: PN: STEFAN DUBON [facility] Apr 28, 2015 2:33 PM Received from: External Pharmacy 02/26/2015 Active buPROPion (WELLBUTRINXL) 150 MG 24 hour release tabletIndications:SAGE ADONAYSTEFAN [facility] Apr 28, 2015 2:33 PM Received from: External Pharmacy 1 Tablet (150 mg). Indications: STEFAN DUBON [facility] Apr 28, 2015 2:33 PM Received from: [...] rst carpometacarpal joint of left hand 07/27/2021 Social History Tobacco Use Types Packs/Day Years [...] Dexa 2018 DTaP/Tdap/Td (2 - Tdap) 12/25/2022 12/26/19, 01/12/2006, 10/31/1999 COVID-19 Vaccine ( season) 2023 04/10/2023, 11/13/2022, 03/27/2022, Additional history exists Mammogram 12/13/2023 12/12/2022, 09/18/2021 Zoster/Shingles Completed 09/01/2018, 02/2018, 12/25/2012 Pneumococcal 65+ Yrs Completed 06/23/2019, 04/17/20 Influenza Completed 04/10/2023, 03/15, 05/02/2021, Additional history [...] this topic Medical Devices Implanted Type Area Machine Tracer Device Identifier Shelf Expiration Date Model / Serial / Lot K-Wire Gd .062 - [id number] Implanted:Qty: 1 on 10/30/2022 by Jens Loja MD at [facility] Left: Thumb [employer] 08/23/2026 1600-023 / 0 / [id number] Wdg Har[employer]ell W/Force Fiber No 2 - [id number] Implanted:Qty: 1 on 10/30/2022 by Jens Loja MD at [facility] Left: Thumb [employer] 03/25/2024 [id number] Procedures Procedure Name Priority Date/Time Associated Diagnosis Comments MM MAMMOGRAM SCREENING BILAT W 3D DEMI W CAD Routine 12/12/2022 1:44 PM CDT from Last 3 Months or Most Recently Relevant to Health Maintenance Advance Directives * Full Code (Latest Code Status on File) Date Activated Date Inactivated Comments 05/15/2016 9:30 AM 05/15/2016 1:44 PM Full code in effect for 30 days Care Teams Ear Flap Binder Relationship Specialty Start Date End Date Angelo Acevedo MD [address] [place] [address] PCP - General Family Practice 06/09/21
--- NOTE | 2023-12-16 15:30 | MR_ITS ---
[address] [address] Phone:?[phone] Fax:?[phone] Referring Physician Information: Thang Grossman M.D. [id number] [facility] [address] Phone:?[phone] Fax:?[phone] Patient:Fadumo Chaudhary Jodi.O.B:?1955 Sex:?Female Phone:?[phone] [facility] MRN:?[id number] Exam Date:?12/16/2023 EXAM: MRI of the LEFT SHOULDER WITHOUT CONTRAST CLINICAL HISTORY: Ongoing left shoulder pain. Concern for rotator cuff tear of the left shoulder. COMPARISONS: Plain radiographs 12/06/2023. TECHNICAL: MRI sequences of the left shoulder: Axials: PD, T2 Coronals: PD, STIR, T2 Sagittals: PD, T2 SEDATION: None CONTRAST: None FINDINGS: Bones: No fracture or destructive osseous lesion is seen. Coracoacromial arch: Acromion: No os acromiale. Type I-II acromion. Acromiohumeral space: The bony distance is unremarkable. Acromioclavicular joint: Mild degenerative changes. Coracoclavicular ligament: The coracoclavicular ligament is intact. Rotator cuff muscles/tendons: Supraspinatus: Bursal sided fraying of, interstitial delamination within, and mild tendinopathy of the supraspinatus tendon. No muscular atrophy. Infraspinatus: The infraspinatus tendon and muscle are intact. Teres minor: The teres minor tendon and muscle are intact. Subscapularis: The subscapularis tendon and muscle are intact. Labrum and glenohumeral joint: Posterosuperior labral fraying. Small glenohumeral joint effusion. 1.6 cm in craniocaudad dimension by 1.3 cm in AP dimension area of full- thickness chondral loss over the superomedial portion of the humeral head. 1.6 x 1.3 x 0.1 cm loose body within the subscapular recess best seen on sagittal images 19 through 21 and coronal images 9 through 11. No convincing evidence of capsular edema or thickening although evaluation is suboptimal because of lack of joint distention. Proximal biceps tendon, long head and short heads: Mild tendinopathy within the intra-articular portion of the long head of the biceps tendon immediately proximal to the bicipital groove. The short head is intact. Bursae: Subacromial/subdeltoid: Slight bursitis. Subcoracoid: No convincing subcoracoid bursal thickening/bursitis. IMPRESSION: 1. 1.6 x 1.3 cm area of full-thickness chondral loss over the superomedial portion of the humeral head. 1.6 x 1.3 x 0.1 cm loose body within the subscapular recess. 2. Bursal sided fraying of, interstitial delamination within, and mild tendinopathy of the supraspinatus tendon. 3. No retracted rotator cuff tendon tear or rotator cuff muscular atrophy. 4. Mild tendinopathy within the intra-articular portion of the long head of the biceps tendon immediately proximal to the bicipital groove. 5. Slight subacromial/subdeltoid bursitis. 6. Small glenohumeral joint effusion. 7. Posterosuperior labral fraying. RCB Electronically signed on 12/17/2023 9:24:00 AM by Chinedu Stauffer M.D.
== END 2023-12-16 15:23 | disposition home or self-care (01) ==
PROVIDERS: PCP Family Medicine; Visit Provider Orthopaedic Surgery Sports Medicine
DX: M25.512 Pain in left shoulder (principal); S46.012A Strain of muscle(s) and tendon(s) of the rotator cuff of left shoulder, initial encounter; M70.52 Other bursitis of knee, left knee; M25.412 Effusion, left shoulder
CPT/HCPCS: 73221; 97112; 97162

== ENCOUNTER 2025-05-04 14:30 | Outpatient (CLI) | payer MEDICARE, BC, SELFPAY | END 2025-05-04 14:31 | disposition home or self-care (01) | LOC: NFLDREF 05-08 15:24 | PROVIDERS: PCP Family Medicine; Referring Provider Family Medicine; Visit Provider Physician Assistant | DX: N39.0 Urinary tract infection, site not specified (principal); R30.0 Dysuria | CPT/HCPCS: 87086 ==

== ENCOUNTER 2025-06-06 13:17 | Outpatient (CLI) | payer MEDICARE, BC, SELFPAY | END 2025-06-06 13:18 | disposition home or self-care (01) | LOC: NFLDREF 06-10 17:33 | PROVIDERS: PCP Family Medicine; Referring Provider Family Medicine; Visit Provider Physician Assistant Surgical | DX: N30.01 Acute cystitis with hematuria (principal) | CPT/HCPCS: 87086 ==

== ENCOUNTER 2025-06-21 14:50 | Outpatient (CLI) | payer MEDICARE, BC, SELFPAY | END 2025-06-21 14:51 | disposition home or self-care (01) | LOC: NFLDREF 06-24 08:10 | PROVIDERS: PCP Family Medicine; Referring Provider Family Medicine; Visit Provider Family Medicine | DX: N39.0 Urinary tract infection, site not specified (principal) | CPT/HCPCS: 87086 ==